=== PATIENT | female | born 1990 | race Caucasian/White ===

== ENCOUNTER 2018-01-09 14:38 | Inpatient (IN) | payer OTHER ==
[~2018-01-09] VITALS: Ht 170.2 cm; Wt 60.0 kg
[2018-01-09 14:42] VITALS: Ht 170.2 cm; Wt 60.0 kg
[2018-01-09 15:23] LABS: BASOPHIL % 0.4 % (0-2); PLATELET COUNT 307 x10^3mcL (130-400)
[2018-01-09 15:26] LABS: RED CELL DISTRIBUTION WIDTH 14.6 % (11.5-14.5)
[2018-01-09 15:32] LABS: CALCIUM 8.6 mg/dL (8.5-10.1); CARBON DIOXIDE 28.8 mmol/L (21-32); CHLORIDE SERUM 103 mmol/L (98-107); CREATININE SERUM 0.6 mg/dL (0.6-1.0); GFR1 > 60 mL/min; GLUCOSE SERUM 93 mg/dL (74-106); POTASSIUM SERUM 3.5 mmol/L (3.5-5.1); SODIUM SERUM 138 mmol/L (136-145)
[2018-01-09 18:17] LABS: MAGNESIUM 1.5 mg/dL (1.8-2.4); PHOSPHOROUS 3.8 mg/dL (2.5-4.9)
[2018-01-09 18:22] LABS: T3 TOTAL 1.53 ng/mL
[2018-01-09 18:43] LABS: FREE T4 1.39 ng/dL (0.76-1.46); FREE THYROXINE INDEX 2.9 ug/dL (1.4-4.5); T4(THYROXINE) 8.5 ug/dL (4.7-13.3)
[2018-01-09] MEDS ORDERED: XANAX2 MG PO (19:07)
[2018-01-09 19:16] LABS: UA SPECIFIC GRAVITY 1.015 (1.005-1.035); microscopic required? YES; urine erythrocyte NEGATIVE (NEGATIVE)
[2018-01-09 19:25] LABS: AMPHETAMINE QUAL UR POSITIVE (See below)
[2018-01-09 19:57] VITALS: BP 143/94
[2018-01-09 20:00] LABS: CALCIUM 8.3 mg/dL (8.5-10.1); CARBON DIOXIDE 26.6 mmol/L (21-32); CHLORIDE SERUM 105 mmol/L (98-107); CREATININE SERUM 0.7 mg/dL (0.6-1.0); GFR1 > 60 mL/min; GLUCOSE SERUM 89 mg/dL (74-106); POTASSIUM SERUM 3.7 mmol/L (3.5-5.1); SODIUM SERUM 141 mmol/L (136-145)
[2018-01-09 20:04] LABS: ALKALINE PHOSPHATASE 128 U/L (46-116); ALT/SGPT 26 U/L (14-59); AST/SGOT 19 U/L (15-37); BILIRUBIN TOTAL 0.39 mg/dL (0.20-1.00); TOTAL PROTEIN, SERUM 7.2 g/dL (6.4-8.2)
[2018-01-09 20:06] LABS: ALBUMIN 2.5 g/dL (3.4-5.0)
[2018-01-10 05:38] VITALS: BP 121/76
[2018-01-10 06:09] LABS: BASOPHIL % 0.4 % (0-2); PLATELET COUNT 313 x10^3mcL (130-400)
[2018-01-10 06:44] LABS: CALCIUM 8.5 mg/dL (8.5-10.1); CARBON DIOXIDE 24.4 mmol/L (21-32); CHLORIDE SERUM 106 mmol/L (98-107); CREATININE SERUM 0.6 mg/dL (0.6-1.0); GFR1 > 60 mL/min; GLUCOSE SERUM 76 mg/dL (74-106); MAGNESIUM 1.6 mg/dL (1.8-2.4); PHOSPHOROUS 3.7 mg/dL (2.5-4.9); POTASSIUM SERUM 3.8 mmol/L (3.5-5.1); SODIUM SERUM 142 mmol/L (136-145)
[2018-01-10 07:55] VITALS: BP 116/78
[2018-01-10 11:48] VITALS: BP 110/76
[2018-01-10 18:11] VITALS: BP 120/81
[2018-01-10 21:10] VITALS: BP 105/63
[2018-01-11 05:12] VITALS: BP 133/84
[2018-01-11 08:02] LABS: CALCIUM 8.6 mg/dL (8.5-10.1); CARBON DIOXIDE 24.2 mmol/L (21-32); CHLORIDE SERUM 105 mmol/L (98-107); CREATININE SERUM 0.5 mg/dL (0.6-1.0); GFR1 > 60 mL/min; GLUCOSE SERUM 149 mg/dL (74-106); POTASSIUM SERUM 3.2 mmol/L (3.5-5.1); SODIUM SERUM 138 mmol/L (136-145)
[2018-01-11 08:07] LABS: BASOPHIL % 0.1 % (0-2); PLATELET COUNT 373 x10^3mcL (130-400)
[2018-01-11 08:13] LABS: RED CELL DISTRIBUTION WIDTH 14.9 % (11.5-14.5)
[2018-01-11 11:57] VITALS: BP 138/86
[2018-01-11 17:04] VITALS: BP 93/42; BP 94/51
[2018-01-11 20:52] VITALS: BP 97/58
[2018-01-12 05:19] VITALS: BP 105/65
[2018-01-12 07:04] LABS: BASOPHIL % 0.3 % (0-2); PLATELET COUNT 359 x10^3mcL (130-400)
[2018-01-12 07:07] LABS: CALCIUM 7.9 mg/dL (8.5-10.1); CHLORIDE SERUM 108 mmol/L (98-107); CREATININE SERUM 0.7 mg/dL (0.6-1.0); GFR1 > 60 mL/min; GLUCOSE SERUM 110 mg/dL (74-106); POTASSIUM SERUM 3.1 mmol/L (3.5-5.1); SODIUM SERUM 143 mmol/L (136-145)
[2018-01-12 07:09] LABS: RED CELL DISTRIBUTION WIDTH 14.6 % (11.5-14.5)
[2018-01-12 09:00] VITALS: BP 105/66
[2018-01-12] MEDS ORDERED: KEFLEX500 M1 PO (13:23)
[2018-01-12] MEDS ORDERED: TOR10 PO (13:24)
[2018-01-12 14:01] VITALS: BP 105/66
== END 2018-01-12 15:24 | disposition home or self-care (01) | DRG 720 ==
LOC: ED 14:38 → MU 17:48
PROVIDERS: Emergency Medicine; Internal Medicine
PROC: 0W9F3ZZ Drainage of Abdominal Wall, Percutaneous Approach (ICD-10-PCS; principal; 2018-01-09)
PROC: 0W9F30Z Drainage of Abdominal Wall with Drainage Device, Percutaneous Approach (ICD-10-PCS; 2018-01-11)
DX: A41.9 Sepsis, unspecified organism (principal); E43 Unspecified severe protein-calorie malnutrition; L02.211 Cutaneous abscess of abdominal wall; E83.42 Hypomagnesemia; D64.9 Anemia, unspecified; F11.10 Opioid abuse, uncomplicated; Z68.20 Body mass index [BMI] 20.0-20.9, adult; L03.311 Cellulitis of abdominal wall; F41.9 Anxiety disorder, unspecified; Z90.89 Acquired absence of other organs; F19.10 Other psychoactive substance abuse, uncomplicated
CPT/HCPCS: 83880; 84439; 90715; C9113; J0295; J0690; J1170; J1720; J1885; J2001; J2543; J3010; J3370; J3480; J3490; J7030; Q0092

== ENCOUNTER 2018-03-26 17:11 | Inpatient (IN) | payer OTHER ==
[~2018-03-26] VITALS: Ht 167.6 cm; Wt 58.1 kg
[~2018-03-26 17:11] MED LIST: KEFLEX500 M1 PO; TOR10 PO; XANAX2 MG PO
[2018-03-26 17:42] VITALS: Ht 167.6 cm; Wt 58.1 kg
[2018-03-26 19:07] LABS: BASOPHIL % 0.3 % (0-2); PLATELET COUNT 303 x10^3mcL (130-400)
[2018-03-26 19:08] LABS: CHLORIDE SERUM 100 mmol/L (98-107); CREATININE SERUM 0.7 mg/dL (0.6-1.0); GFR1 > 60 mL/min; GLUCOSE SERUM 84 mg/dL (74-106); POTASSIUM SERUM 3.5 mmol/L (3.5-5.1); SODIUM SERUM 136 mmol/L (136-145)
[2018-03-26 19:09] LABS: RED CELL DISTRIBUTION WIDTH 15.2 % (11.5-14.5)
[2018-03-26 19:13] LABS: ALBUMIN 3.4 g/dL (3.4-5.0); ALKALINE PHOSPHATASE 124 U/L (46-116); ALT/SGPT 53 U/L (14-59); AST/SGOT 27 U/L (15-37); BILIRUBIN TOTAL 0.19 mg/dL (0.20-1.00)
[2018-03-26 19:14] LABS: TOTAL PROTEIN, SERUM 8.4 g/dL (6.4-8.2)
[2018-03-26 21:13] LABS: AMPHETAMINE QUAL UR POSITIVE (See below)
[2018-03-26 21:22] VITALS: BP 121/78
[2018-03-26 21:48] LABS: CHOLESTEROL/HDL RATIO 2.9
[2018-03-27 05:08] VITALS: BP 107/64
[2018-03-27 07:55] LABS: CALCIUM 8.5 mg/dL (8.5-10.1); CARBON DIOXIDE 25.6 mmol/L (21-32); CHLORIDE SERUM 103 mmol/L (98-107); CREATININE SERUM 0.6 mg/dL (0.6-1.0); GFR1 > 60 mL/min; GLUCOSE SERUM 118 mg/dL (74-106); MAGNESIUM 1.8 mg/dL (1.8-2.4); PHOSPHOROUS 2.6 mg/dL (2.5-4.9); POTASSIUM SERUM 3.9 mmol/L (3.5-5.1); SODIUM SERUM 135 mmol/L (136-145)
[2018-03-27 08:03] LABS: BASOPHIL % 0.2 % (0-2); PLATELET COUNT 284 x10^3mcL (130-400)
[2018-03-27 08:05] LABS: RED CELL DISTRIBUTION WIDTH 15.1 % (11.5-14.5)
[2018-03-27 08:51] VITALS: BP 108/67
[2018-03-27 10:36] LABS: microscopic required? NO
[2018-03-27 11:16] LABS: urine erythrocyte NEGATIVE (NEGATIVE)
[2018-03-27 12:17] VITALS: BP 113/73
[2018-03-27 20:51] VITALS: BP 100/856
[2018-03-28 05:13] VITALS: BP 103/65
[2018-03-28 06:32] LABS: BASOPHIL % 0.3 % (0-2); PLATELET COUNT 292 x10^3mcL (130-400)
[2018-03-28 06:36] LABS: RED CELL DISTRIBUTION WIDTH 14.6 % (11.5-14.5)
[2018-03-28 06:52] LABS: CALCIUM 8.3 mg/dL (8.5-10.1); CARBON DIOXIDE 25.2 mmol/L (21-32); CHLORIDE SERUM 104 mmol/L (98-107); CREATININE SERUM 0.6 mg/dL (0.6-1.0); GFR1 > 60 mL/min; GLUCOSE SERUM 99 mg/dL (74-106); POTASSIUM SERUM 3.3 mmol/L (3.5-5.1); SODIUM SERUM 139 mmol/L (136-145)
[2018-03-28 08:00] VITALS: BP 98/61
[2018-03-28] MEDS ORDERED: DOXYCYCLINE HY100 M2 PO (12:33)
[2018-03-28 13:07] VITALS: BP 98/61
[2018-03-28] MEDS ORDERED: NORCO1 TA1 PO (15:34)
== END 2018-03-28 16:47 | disposition home health service (06) | DRG 364 ==
LOC: ED 17:11 → MU 20:13
PROVIDERS: Emergency Medicine; General Practice; Surgery
PROC: 0J9N0ZZ Drainage of Right Lower Leg Subcutaneous Tissue and Fascia, Open Approach (ICD-10-PCS; 2018-03-27)
PROC: 0J980ZZ Drainage of Abdomen Subcutaneous Tissue and Fascia, Open Approach (ICD-10-PCS; 2018-03-27)
PROC: 0J980ZZ Drainage of Abdomen Subcutaneous Tissue and Fascia, Open Approach (ICD-10-PCS; principal; 2018-03-27 10:00)
DX: L03.311 Cellulitis of abdominal wall (principal); E43 Unspecified severe protein-calorie malnutrition; L02.211 Cutaneous abscess of abdominal wall; F11.20 Opioid dependence, uncomplicated; L02.216 Cutaneous abscess of umbilicus; L02.415 Cutaneous abscess of right lower limb; E87.6 Hypokalemia; Z68.20 Body mass index [BMI] 20.0-20.9, adult; Z91.19 Patient's noncompliance with other medical treatment and regimen; F19.10 Other psychoactive substance abuse, uncomplicated; F17.200 Nicotine dependence, unspecified, uncomplicated; L03.115 Cellulitis of right lower limb
CPT/HCPCS: J0690; J0696; J1170; J2001; J2250; J2405; J2543; J3010; J3370; J7030; J7040; Q0092

== ENCOUNTER 2018-03-30 16:50 | Emergency (ER) | payer OTHER ==
[~2018-03-30] VITALS: Ht 165.1 cm; Wt 54.4 kg
[~2018-03-30 16:50] MED LIST changes: +DOXYCYCLINE HY100 M2 PO; +NORCO1 TA1 PO
[2018-03-30 18:36] VITALS: BP 144/78
== END 2018-03-30 18:36 | disposition home or self-care (01) ==
LOC: ED 16:50
DX: L02.211 Cutaneous abscess of abdominal wall (principal); L02.415 Cutaneous abscess of right lower limb; R03.0 Elevated blood-pressure reading, without diagnosis of hypertension

== ENCOUNTER 2018-04-06 07:36 | Emergency (ER) | payer OTHER ==
[~2018-04-06] VITALS: Ht 167.6 cm; Wt 57.2 kg
[2018-04-06 07:40] VITALS: BP 136/95; Ht 167.6 cm; Wt 57.2 kg
== END 2018-04-06 08:20 | disposition home or self-care (01) ==
LOC: ED 07:36
DX: L02.211 Cutaneous abscess of abdominal wall (principal)

== ENCOUNTER 2018-09-27 16:04 | Inpatient (IN) | payer OTHER ==
[~2018-09-27] VITALS: Ht 167.6 cm; Wt 78.5 kg
--- NOTE | 2018-09-27 16:24 | NUR ---
PATIENT WAS BROUGHT IN BY FOR ALOC, WAS ABLE TO TAKE A FEW STEPS FROM WHEELCHAIR TO GURNEY. PATIENT WAS ABLE TO COMMUNICATE BUT SLOWLY. PER PATIENT, SHE HAD AN 2 DAYS AGO. STS THAT SHE DOES TAKE HEROIN. PATIENT HAS BEEN ABLE TO ANSWER ALL QUESTIONS WITH [facility]. PATIENT IS DIAPHORETIC AND SKIN IS COOL AND CLAMMY. DR. BUCK PERFORMED MSE.
--- NOTE | 2018-09-27 16:25 | NUR ---
NEEDLE FOUND ON PATIENT'S RIGHT SIDE NEAR HER BRA. PATIENT DID STATE SHE HAS HISTORY OF HEROIN USE, STS LAST USE 2 DAYS AGO.
--- NOTE | 2018-09-27 16:50 | NUR ---
PATIENT SENT TO CT
[2018-09-27 17:04] LABS: PLATELET COUNT 38 x10^3mcL (130-400); RED CELL DISTRIBUTION WIDTH 16.2 % (11.5-14.5)
[2018-09-27 17:17] LABS: CALCIUM 8.4 mg/dL (8.5-10.1); CARBON DIOXIDE 18.3 mmol/L (21-32); CHLORIDE SERUM 107 mmol/L (98-107); CREATININE SERUM 3.8 mg/dL (0.6-1.0); GFR1 15 mL/min; GLUCOSE SERUM 69 mg/dL (74-106); POTASSIUM SERUM 3.9 mmol/L (3.5-5.1); SODIUM SERUM 147 mmol/L (136-145)
[2018-09-27 17:31] LABS: ALKALINE PHOSPHATASE 158 U/L (46-116); ALT/SGPT 264 U/L (14-59); AST/SGOT 653 U/L (15-37); BILIRUBIN TOTAL 11.62 mg/dL (0.20-1.00); MAGNESIUM 1.3 mg/dL (1.8-2.4); TOTAL PROTEIN, SERUM 6.3 g/dL (6.4-8.2)
[2018-09-27 17:33] LABS: ALBUMIN 2.5 g/dL (3.4-5.0)
[2018-09-27 17:39] LABS: BAND NEUTROPHIL 19 % (0-10); METAMYELOCTE 11 % (0-2); MONOCYTE 2 % (0-7); MYELOCYTE 3 % (0-2); SEGMENTED NEUTROPHILS 61 % (37-75)
[2018-09-27 17:41] LABS: PLATELET MORPHOLOGY PLATELETS DECREASED; acanthocyte (spur cell) 1+; rbc morphology (normal/abnorm) ABNORMAL (NORMAL)
--- NOTE | 2018-09-27 18:07 | NUR ---
XRAY AT BEDSIDE
--- NOTE | 2018-09-27 18:09 | NUR ---
PER MARLEEN FREY TO GIVE NACL BOLUS.
[2018-09-27 18:13] LABS: UA SPECIFIC GRAVITY 1.015 (1.005-1.035); microscopic required? YES; urine erythrocyte 2+ (NEGATIVE)
--- NOTE | 2018-09-27 18:15 | NUR ---
NOTIFIED DR. BUCK OF BP OF 91/45 WITH MAP OF 60. PER DR. BUCK, CONTINUE WITH BOLUS FLUIDS
--- NOTE | 2018-09-27 18:32 | NUR ---
WENT TO LAB TO REQUEST ETA FOR FRESH FROZEN PLASMA. PER LAB, SPECIMEN HAS NOT BEEN OBTAINED. PLEASE CHECK IN 45-60 MINUTES
[2018-09-27 18:45] LABS: AMPHETAMINE QUAL UR POSITIVE (See below)
--- NOTE | 2018-09-27 18:47 | NUR ---
PT RESTING AT BEDSIDE IN NAD.
--- NOTE | 2018-09-27 19:09 | NUR ---
REPORT OFF TO CAITLYN JEFFERSON
--- NOTE | 2018-09-27 20:20 | NUR ---
TRANSFUSION OF FFP INITIATED.
--- NOTE | 2018-09-27 20:37 | NUR ---
PT VITAL SIGNS STABLE. RESPIRATIONS EVEN AND UNLABORED. FFP RATE INCREASED TO BE GIVEN OVER ONE HOUR PER ORDER. NO ACUTE DISTRESS NOTED.
--- NOTE | 2018-09-27 20:46 | NUR ---
REPORT GIVEN TO ANTOINE IN ICU FOR CONTINUATION OF CARE.
--- NOTE | 2018-09-27 20:56 | NUR ---
RECEIVED REPORT FROM ANGEL IN ER. RECEIVED PT AND CONNECTED TO CARDIAC MONITORS. PT IS ALERT AND ORIENTED TO PERSON AND PLACE. PUPILS 3 MM AND BRISK BILATERALLY. PT IS BREATHING E/U ON RA. LUNG SOUNDS DIMINISHED TO BILATERAL UPPER AND LOWER LOBES. S1 S2 HEART SOUNDS AUSCULTATED. ABD IS FIRM AND ROUNDED WITH HYPOACTIVE BOWEL SOUNDS X4Q. WHITE DRAINING VIA GRAVITY. URINE IS YELLOW WITH FAIR OUTPUT. SKIN IS COOL, CLAMMY, AND PALE. PT HAS IV TO RIGHT JUGULAR PATENT, DRESSING CDI. CAP REFILL <3 SECONDS X4. NS INFUSING AT 250 ML/HR, D10 INFUSING AT 100 ML/HR, AND FFP INFUSING AT 233.9 ML/HR. MODERATE PULSES TO BUE, WEAK TO BLE. PT HAS VARIOUS BRUISING THROUGHOUT THE BODY, PARTICULARLY TO LOWER ABD. TRACE EDEMA NOTED TO BUE/BLE. WILL CONTINUE TO MONITOR.
[2018-09-27 20:58] LABS: PHOSPHOROUS 5.9 mg/dL (2.5-4.9)
[2018-09-27 20:59] LABS: CHOLESTEROL/HDL RATIO 5.3
[2018-09-27 21:07] LABS: FREE T4 1.37 ng/dL (0.76-1.46); FREE THYROXINE INDEX 2.7 ug/dL (1.4-4.5); T3 TOTAL 0.87 ng/mL; T4(THYROXINE) 9.3 ug/dL (4.7-13.3)
--- NOTE | 2018-09-27 21:55 | NUR ---
DR. HOLLAND AT BEDSIDE FOR INITIAL ASSESSMENT. PER DR. HOLLAND, ORDER 1 L NS BOLUS, AND DIC PANEL. WILL FOLLOW THROUGH WITH ORDER.
--- NOTE | 2018-09-27 22:49 | NUR ---
PT'S BLOOD SUGAR 27, BEGAN INFUSION OF D10 AT 250 ML/HR. CALLED DR. MCCULLOUGH TO PLACE ORDER.
--- NOTE | 2018-09-27 23:00 | NUR ---
FIRST BAG OF FROZEN PLASMA COMPLETED. FINAL VITAL SIGNS INCLUDE TEMP. 98.0, PULSE: 92, BP: 99/58, RR: 16, O2: 100%. NO ADVERSE EFFECTS NOTED.
--- NOTE | 2018-09-27 23:13 | NUR ---
PT'S BLOOD SUGAR NOW AT 71, WILL CHECK AGAIN IN ABOUT 15 MINUTES.
--- NOTE | 2018-09-28 | NUR ---
SECOND BAG OF FFP STARTED. VITAL SIGNS INCLUDE TEMP: 97.6, PULSE: 100, BP: 99/70, RR: 22, O2: 100%. WILL CONTINUE TO MONITOR.
--- NOTE | 2018-09-28 | NUR ---
PT UPDATED BLOOD SUGAR 103. WILL CONTINUE TO MONITOR PATIENT.
--- NOTE | 2018-09-28 00:15 | NUR ---
15 MINUTE VITALS FOR FFP INCLUDE TEMP 98.1, PULSE: 94, BP: 110/62, RR: 13, O2: 100%. WILL INCREASE RATE, AND CONTINUE TO MONITOR PT.
[2018-09-28 00:42] VITALS: BP 91/52
--- NOTE | 2018-09-28 01:34 | NUR ---
SECOND BAG OF FFP COMPLETED. FINAL VITAL SIGNS INCLUDE TEMP: 98.0, PULSE: 94, BP: 114/74, RR: 14, O2: 100%. NO ADVERSE EVENTS NOTED. WILL CONTINUE TO MONITOR.
--- NOTE | 2018-09-28 04:15 | NUR ---
PT HAD A BLOOD SUGAR OF 12. PROVIDED PATIENT WITH ORANGE JUICE WITH SUGAR PACKETS, BUT PT DID NOT TOLERATE. PAGED DR. MCCULLOUGH FOR ORDERS. WILL FOLLOW THROUGH.
[2018-09-28 06:16] LABS: PLATELET COUNT 18 x10^3mcL (130-400); RED CELL DISTRIBUTION WIDTH 16.8 % (11.5-14.5)
--- NOTE | 2018-09-28 06:16 | NUR ---
PLT 18, made aware at this time,awaiting any orders. Will continue to monitor.
--- NOTE | 2018-09-28 06:28 | NUR ---
Pt noted with critical lab Troponin trending down. Troponin 0.116, relayed to Dr Conklin with no new orders. Will continue to monitor.
--- NOTE | 2018-09-28 06:53 | NUR ---
AFTER D10 WAS GIVEN, BLOOD SUGAR WAS 41. DR. KNOX MADE AWARE.
--- NOTE | 2018-09-28 07:26 | NUR ---
PROVIDED PATIENT WITH ORANGE JUICE, WITH ADDED SUGAR PACKETS TO RAISE BLOOD SUGAR. D10 ALSO INFUSING AT 250 ML/HR.
--- NOTE | 2018-09-28 07:30 | NUR ---
RECEIVED PT FROM ARELI RN. PT AA/OX3, EASILY AROUSABLE TO VERBAL STIMULI, BLOOD SUGAR SPOT CHECKED, 36, RECHECKED 34. GIVEN ORANGE JUICE WITH SUGAR. DR. KNOX NOTIFIED IMMEDIATELY. AWAITING NEW ORDERS. PT COLD/CLAMMY. NO N/V. WILL MONITOR CLOSELY
[2018-09-28 07:41] LABS: CALCIUM 6.2 mg/dL (8.5-10.1); CARBON DIOXIDE 17.7 mmol/L (21-32); POTASSIUM SERUM 3.9 mmol/L (3.5-5.1)
[2018-09-28 07:44] LABS: ALBUMIN 1.8 g/dL (3.4-5.0); TOTAL PROTEIN, SERUM 4.7 g/dL (6.4-8.2)
[2018-09-28 07:46] LABS: BILIRUBIN TOTAL 14.03 mg/dL (0.20-1.00); CREATININE SERUM 4.7 mg/dL (0.6-1.0)
--- NOTE | 2018-09-28 07:48 | NUR ---
IV FLUIDS DEXTROSE 10% RUNNING PER DR. KNOX ORDER. BLOOD SUGAR CHECKED, 86. RESTING IN BED WITH BOTH EYES CLOSED. VS STABLE. WILL CONTINUE TO MONITOR.
--- NOTE | 2018-09-28 07:54 | NUR ---
BUN 56, CREA 4.7, TOTAL BILI 14.03, DR. MCCULLOUGH AND DR. KNOX AWARE. NO FURTHER ORDERS AT THIS TIME. WILL MONITOR.
[2018-09-28 08:10] VITALS: BP 102/75
[2018-09-28 09:34] LABS: BAND NEUTROPHIL 20 % (0-10); BASOPHIL 0 % (0-2); METAMYELOCTE 10 % (0-2); MONOCYTE 3 % (0-7); MYELOCYTE 3 % (0-2); PLATELET MORPHOLOGY PLATELETS DECREASED; SEGMENTED NEUTROPHILS 58 % (37-75); rbc morphology (normal/abnorm) ABNORMAL (NORMAL); schistocyte (helmet cell) 1+
[2018-09-28 09:35] LABS: acanthocyte (spur cell) 1+; burr cell (echinocyte) 1+
--- NOTE | 2018-09-28 11:20 | NUR ---
DR. KNOX MADE AWARE CAITLYN BUNCH GOT THREE DIFFERENT BEDSIDE BLOOD SUGARS INCLUDING 18, 67 AND 73. NO INTERVENTION DONE BETWEEN EACH CHECK. DR. KNOX WILL VERIFY BLOOD GLUCOSE BY ORDERING A BMP. DR. KNOX MADE AWARE PATIENT ONLY HAS ONE IV ACCESS AND UNABLE TO OBTAIN ANOTHER IV DUE TO DIFFICULT STICK. PLATELET AND BUBBLE STUDY ON HOLD FOR NOW DUE TO LIMITED IV ACCESS, DR. KNOX MADE AWARE.
[2018-09-28 12:03] VITALS: BP 114/73
[2018-09-28 13:37] LABS: CALCIUM 6.1 mg/dL (8.5-10.1); CARBON DIOXIDE 14.2 mmol/L (21-32); POTASSIUM SERUM 5.3 mmol/L (3.5-5.1)
[2018-09-28 13:44] LABS: CREATININE SERUM 5.1 mg/dL (0.6-1.0)
--- NOTE | 2018-09-28 14:00 | NUR ---
notified of blood cultures, gram negative rods and gram positive cocci in clusters, per dr, will add another antibiotic for coverage of blood culture results. Primary RN Marie made aware.
--- NOTE | 2018-09-28 14:10 | NUR ---
BLOOD CULTURE: Gram Positive Cocci in Cluster, Gram Negative Bacilli, DR. KNOX AWARE.
[2018-09-28 16:10] VITALS: BP 103/63
--- NOTE | 2018-09-28 18:37 | NUR ---
BLOOD SUGAR SPOT CHECKED 42, RECHECKED IN ALTERNATE HAND, 47, GIVEN APPLE JUICE WITH SUGAR. DR. KNOX AND DR. MCCULLOUGH AWARE. PER DR. MCCULLOUGH CONTINUE CURRENT FLUIDS. PT AA/OX4, FOLLOWS COMPLEX COMMANDS, RESPONDS TO VERBAL STIMULI, FACE SYMMETRICAL, SPEECH CLEAR. NO S/S OF ACUTE DISTRESS. VS STABLE. IV WNL TO RIJ, SHEY CATH TO LIJ WNL, AWAITING XRAY FOR CONFIRMATION OF PLACEMENT. WHITE INTACT, OUTPUT 100CC FOR DAY, OLIGURIC. NO COMPLAINT OF PAIN. NO SOB ON 2LNC. BED IN LOW POSITION. CALL LIGHT WITHIN REACH. WILL ENDORSE TO ONCOMING SHIFT.
--- NOTE | 2018-09-28 19:35 | NUR ---
REPORT GIVEN TO GRACE RN TO ASSUME CARE. PT DROWSY BUT EASILY AROUSABLE. PT IS A/0 X4, SPEECH CLEAR AND APPROPRIATE. ABLE TO FOLLOW COMMANDS. PERRLA NOTED. SCLERAL EDEMA NOTED BIANKA. EENT FREE OF DISCHARGE. RESPS E/U ON O2 2LPM VIA NC. CHEST RISE EQUAL AND SYMMETRICAL. LUNG SOUNDS CTA. MANAGER STRATEGY & ACCOUNT IN PLACE, BP 118/67 MAP 83, HR 92. CHEST WALL STABLE. DENIES ANY CP, SYNCOPE, OR DIZZINESS. PULSES PALPABLE X4 BUT WEAK. GENERALIZED NON-PITTING EDEMA NOTED. CAP REFILL < 3 SECS. D10 INFUSING @ 50ML/HR. D5W WITH HCO3 INFUSING @ 100ML/HR. GEN WEAKNESS. TURNED AND REPOSITIONED Q2H FOR PRESSURE RELIEF. REGULAR DIET BUT WITH POOR INTAKE REPORTED BY AM NURSE. ABD DISTENDED AND SOFT. BOWEL SOUNDS HYPOACTIVE. DENIES ANY N/V/D AT THIS TIME. F/C INTACT AND DRAINING VIA GRAVITY. NO VAGINAL BLEEDING OR DISCHARGE NOTED. LIJ SHEY CATH INTACT, PORTS PATENT, DSG CDI. R EJ IV INTACT AND PATENT, INFUSING WELL. SKIN COLOR JAUNDICED WITH SCATTERED ECCHYMOSIS TO BUE, BLE, AND ABD. TRACK DEJESUS NOTED BUE. ALL NEEDS MET AT THIS TIME. CALL LIGHT WITHIN REACH. ROOM NEAR NURSING STATION FOR CLOSE MONITORING. WILL CONTINUE TO MONITOR.
--- NOTE | 2018-09-28 19:35 | NUR ---
REC'D REPORT FROM GRACE RN TO ASSUME CARE. PT DROWSY BUT EASILY AROUSABLE. PT IS A/0 X4, SPEECH CLEAR AND APPROPRIATE. ABLE TO FOLLOW COMMANDS. PERRLA NOTED. SCLERAL EDEMA NOTED BIANKA. EENT FREE OF DISCHARGE. RESPS E/U ON O2 2LPM VIA NC. CHEST RISE EQUAL AND SYMMETRICAL. LUNG SOUNDS CTA. VP PATIENT IN PLACE, BP 118/67 MAP 83, HR 92. CHEST WALL STABLE. DENIES ANY CP, SYNCOPE, OR DIZZINESS. PULSES PALPABLE X4 BUT WEAK. GENERALIZED NON-PITTING EDEMA NOTED. CAP REFILL < 3 SECS. D10 INFUSING @ 50ML/HR. D5W WITH HCO3 INFUSING @ 100ML/HR. GEN WEAKNESS. TURNED AND REPOSITIONED Q2H FOR PRESSURE RELIEF. REGULAR DIET BUT WITH POOR INTAKE REPORTED BY AM NURSE. ABD DISTENDED AND SOFT. BOWEL SOUNDS HYPOACTIVE. DENIES ANY N/V/D AT THIS TIME. F/C INTACT AND DRAINING VIA GRAVITY. NO VAGINAL BLEEDING OR DISCHARGE NOTED. LIJ SHEY CATH INTACT, PORTS PATENT, DSG CDI. R EJ IV INTACT AND PATENT, INFUSING WELL. SKIN COLOR JAUNDICED WITH SCATTERED ECCHYMOSIS TO BUE, BLE, AND ABD. TRACK DEJESUS NOTED BUE. ALL NEEDS MET AT THIS TIME. CALL LIGHT WITHIN REACH. ROOM NEAR NURSING STATION FOR CLOSE MONITORING. WILL CONTINUE TO MONITOR.
[2018-09-28 19:40] VITALS: BP 118/67
--- NOTE | 2018-09-28 19:45 | NUR ---
PTS BLOOD SUGAR 10, APPLE JUICE AND WATER WITH SUGAR PACKETS PROVIDED. DR SADIA OROZCO AWARE, ORDER GIVEN FOR IVF D10 @ 100ML/HR.
--- NOTE | 2018-09-28 20:43 | NUR ---
BLOOD SUGAR RECHECKED, 51. PT DROWSY BUT EASILY AROUSABLE. ABLE TO FOLLOW COMMANDS.
--- NOTE | 2018-09-28 21:30 | NUR ---
DR HOLLAND AT BEDSIDE, UPDATED ON STATUS. NO NEW ORDERS GIVEN.
--- NOTE | 2018-09-29 00:31 | NUR ---
HD COMPLETE, 2L OUT REPORTED BY JACKELYN BRADY.
[2018-09-29 00:38] VITALS: BP 116/60
--- NOTE | 2018-09-29 01:15 | NUR ---
DR PINK AT BEDSIDE, UPDATED ON STATUS, ALL QUESTIONS AND CONCERNS ADDRESSED. DR PINK STATES TO CONTINUE SAME ATBS, NO NEW ORDERS GIVEN.
[2018-09-29 03:12] VITALS: BP 113/57
--- NOTE | 2018-09-29 05:28 | NUR ---
TOTAL BED BATH PROVIDED WITH CHG WIPES. SMALL AMT OF DARK BROWN THICK DISCHARGE NOTED TO [place]. F/C CARE PROVIDED, LINENS CHANGED. DR BORJA MADE AWARE.
[2018-09-29 06:01] LABS: CALCIUM 6.8 mg/dL (8.5-10.1); CREATININE SERUM 3.6 mg/dL (0.6-1.0); POTASSIUM SERUM 3.2 mmol/L (3.5-5.1)
[2018-09-29 06:02] LABS: ALBUMIN 1.4 g/dL (3.4-5.0); TOTAL PROTEIN, SERUM 3.7 g/dL (6.4-8.2)
[2018-09-29 06:03] LABS: BILIRUBIN TOTAL 19.64 mg/dL (0.20-1.00)
--- NOTE | 2018-09-29 06:05 | NUR ---
REPORTED ALL ABNORMAL LABS TO DR BORJA, AWAITING FOR FURTHER ORDERS.
[2018-09-29 06:22] LABS: RED CELL DISTRIBUTION WIDTH 16.7 % (11.5-14.5)
--- NOTE | 2018-09-29 06:29 | NUR ---
REPORTED CRITICAL LAB VALUE PLT 8000, HCT [address] DR BORJA STS WILL SPEAK TO DR DUNLAP FOR FURTHER ORDERS.
[2018-09-29 06:32] LABS: BAND NEUTROPHIL 6 % (0-10); MONOCYTE 2 % (0-7); SEGMENTED NEUTROPHILS 82 % (37-75)
[2018-09-29 06:37] LABS: PLATELET MORPHOLOGY PLATELETS DECREASED; acanthocyte (spur cell) 1+; rbc morphology (normal/abnorm) ABNORMAL (NORMAL); schistocyte (helmet cell) 1+
[2018-09-29 07:05] LABS: PLATELET COUNT 8 x10^3mcL (130-400)
--- NOTE | 2018-09-29 07:07 | NUR ---
DR WRIGHT AT BEDSIDE, UPDATED ON STATUS WITH ALL ABNORMAL LABS, DR WRIGHT STATES PT WILL NEED PLTS BUT CLARIFY WITH ONCOLOGIST FIRST. DO NOT GIVE ANY PAIN OR SEDATION MEDICATIONS. DR BORJA MADE AWARE. DR RAMIREZ (ONCOLOGIST) PAGED AT THIS TIME.
--- NOTE | 2018-09-29 07:24 | NUR ---
REPORT GIVEN TO VAHE BRADY FOR CONTINUITY OF CARE
--- NOTE | 2018-09-29 07:35 | NUR ---
PT PLACED ON ISOGEL MATTRESS AND BILAT Z-FLEX BOOTS APPLIED. PRIMARY RN AWARE.
[2018-09-29 08:00] VITALS: BP 117/70
--- NOTE | 2018-09-29 08:32 | NUR ---
SPOKE WITH DR. BORJA AND INFORMED HER PER DR. RAMIREZ PLEASE ORDER 2 UNITS OF PLATLETS. PRIMARY RN AWARE.
--- NOTE | 2018-09-29 09:32 | NUR ---
PT TURNED AND REPOSITIONED WITH ALL PRESSURE POINTS OFFLOADED. PT'S LEFT HAND NOTED TO BE SWOLLEN WITH RING TO RING FINER. PT EDUCATED ON NEED TO ATTEMPT TO REMOVE RING AND I INFOMRED PT IN THE CASE WE AREN'T ABLE TO REMOVE IT WE MAY NEED TO CUT IT. PT STATED "NO". LEFT HAND ELEVATED AT THIS TIME IN ATTEMPT TO REDUCE SOME OF THE SWELLING TO FINGER. WILL REASSESS. PRIMARY RN AWARE.
--- NOTE | 2018-09-29 10:49 | NUR ---
LEFT HAND REASSESSED FOR REDUCE SWELLING TO RING FINGER. ATTEMPTED TO REMOVE RING AT THIS TIME WITH NO SUCCESS. PT'S SIGNIFICANT OTHER AT BEDSIDE AND ENCOURAGED PT TO CUT RING OFF IF NEED BE. ER CONTACTED FOR ASSISSTANCE IN CUTING RING. AWAITING ARRIVAL OF ERT FOR ASSISTANCE.
--- NOTE | 2018-09-29 11:33 | NUR ---
Initial Nutrition Assessment: [facility] ICU-9 Dx: Severe Sepsis PMHx: IV drug use PSHx: Recent Labs: (09/29) K:3.2L, BH, BUN:38H, Cr:3.6H, Ca:6.8L, T bili:19.64H, AST:194H, ALT:107H, MgL1.1L, WBC:12.7H, H/H;7.2/20L (09/28) Troponin:0.135/0.116 Meds: Colace, D10%, Flagyl, KCL, Protonix, Rocephin, Vancomycin, Zofran, Zosyn Diet: Regular PO Intake: 0% on 09/28 Ht: 66in, 5'6" Wt:140#, 63.5kg BMI: 22.5kg/m2 (normal weight) Bed scale: 71kg noted with equipment and isogel mattress IBW:135#, 61kg %IBW: 104% UBW: unable to obtain Age: 28 y/o female Food Allergies: NKFA Skin:jaundiced, scattered ecchumosis to BUE, BLE and abdomen. + track brush Juan: 13 Edema: generalized non-pitting edema GI: abd disteded, hypoactive bowel sounds, Last BM: Per H&P, pt was admitted with ALOC. Pt had a recent on Monday and has been feeling unwell. Per progress note 09/29, pt was found to have DIC and acute renal failure. Current vitals are stable. Infectious disease recommends continue combination of antibiotics. Cardaic echo was concerning for vegetation. Patient has history of IV drug use. Bubble study done shows vegetation. Pending official read.+LIJ olayinka catheter, completed HD with 2L o/p. During visit, pt was seen with RN, family and doctor at bedside. Spoke to rim fire charger operator, who reports pt with a poor appetite. Pt is drowsy but arousable. Pt is able to chew and swallow without difficulty. Recommended ONS and RN agreeable. Recommended to offer ONS and give medication with ONS. Problem with: N/V/D/C: No Problems with: Chewing: Swallowing: No Current appetite: Poor Recent wt change:unable to assess %wt change:N/A Vitamin/Supplement use: none per H&P Special diet at home: regular per admission assesment Physical activity: unknown Nutrition education given: no due to pt drowsy Food-drug interactions? Vancomycin: GI disorder Education given?no Estimated Nutritional Needs Based on actual body weight 64kg Energy: 1920-2240kcal/d (30-35kcal/kg for sepsis and HD) Protein: 77-90g/d (1.2-1.4g/kg for sepsis and HD) Fluid: per doctor Nutrition Diagnosis 1. Inadequate protein/energy intake related to lethargy as evidenced by PO intake 0% x 3 meals. 2. Altered nutrition related labs related to JOYCE as evidenced by elevated BUN:38 and Cr:3.6. Intervention 1. Recommend adding ONS Nepro TID (provides 1275kcal and 57g protein) due to poor PO intake. Monitor/Evaluate Goal: PO intake at least 75% of estimated needs Monitor: PO intake, Labs, GI function F/U in 2-3 days as high risk:10/01-
--- NOTE | 2018-09-29 11:35 | NUR ---
1. Recommend adding ONS Nepro TID (provides 1275kcal and 57g protein) due to poor PO intake.
--- NOTE | 2018-09-29 11:38 | NUR ---
RING TO LEFT HAND CUT SUCCESSFULLY BY FELA PERAZA AND GIVEN TO PT'S SIGNIFICANT OTHER.
[2018-09-29 12:00] VITALS: BP 109/54
--- NOTE | 2018-09-29 13:10 | NUR ---
FAMILY KUSHAL CAME BEDESIDE. PT'S SITUATION WAS UPDATED. PT CO PAIN. WAS NOTIFIED. TORADOL WAS ORDERED AND GIVEN. PLT WAS ORDERED AND GIVEN. FIRST UNIT OF PLT WAS DONE SMOOTHLY. SECOND STARTED RIGHT NOW. PT TOLERATED WELL.
[2018-09-29 16:00] VITALS: BP 124/59
[2018-09-29 21:00] VITALS: BP 112/78
[2018-09-30] VITALS (13 sets, daily range): BP systolic 110–143; BP diastolic 60–82
[2018-09-30 06:56] LABS: BILIRUBIN DIRECT 28.55 mg/dL (0.0-0.2); CALCIUM 6.6 mg/dL (8.5-10.1); MAGNESIUM 1.4 mg/dL (1.8-2.4); PHOSPHOROUS 2.4 mg/dL (2.5-4.9); POTASSIUM SERUM 3.8 mmol/L (3.5-5.1)
[2018-09-30 07:05] LABS: ALBUMIN 1.4 g/dL (3.4-5.0); TOTAL PROTEIN, SERUM 3.7 g/dL (6.4-8.2)
[2018-09-30 07:06] LABS: BILIRUBIN TOTAL 32.6 mg/dL (0.20-1.00)
[2018-09-30 07:49] LABS: PLATELET COUNT 12 x10^3mcL (130-400)
--- NOTE | 2018-09-30 07:55 | NUR ---
RECEIVED PT RESTING IN BED ON R SIDE, DROWSY BUT AROUSABLE, COMPLAINING OF GENERALIZED PAIN, A+OX4, SCLERAL EDEMA, 2L NC, LUNG SOUNDS DIMINISHED, PULSES WEAK AND EQUAL BIANKA, ANASARCA, NSR, JAUNDICE SKIN , SCATTERED ECCHYMOSIS, TRACK DEJESUS TO BUE, POOR APPETITE, BOWEL SOUNDS ACTIVE, REJ SITE WNL, RIJ SITE WNL, D10 @ 40 ML/HR, D5W WITH HCO3 @ 100 ML/HR, WHITE CATH INTACT AND DRAINING YELLOW URINE TO GRAVITY, GENERALIZED WEAKNESS, ABLE TO TURN NEEDED, CALL LIGHT WITHIN REACH.
--- NOTE | 2018-09-30 08:00 | NUR ---
DR WRIGHT NOTIFIED OF HGB 6.5, HCT 17, PLT 12, D DIMER [id number].
--- NOTE | 2018-09-30 08:03 | NUR ---
PER DR WRIGHT, D10 CHANGED TO 40 ML/HR.
--- NOTE | 2018-09-30 08:04 | NUR ---
DR. WRIGHT IN UNIT AND PROVIDED WITH UPDATES. NEW ORDERS RECIEVED TO LOWER D10 TO 40 ML/HR. PRIMARY RN AWARE. DR. WRIGHT ALSO AWARE OF H/H RESULTS WITH NO FURTHER ORDERS AT THIS TIME. WILL NOTIFY COVERING RESIDENT.
--- NOTE | 2018-09-30 09:50 | NUR ---
PT REPOSITIONED TO SUPINE, HEEL PROTECTORS BLE, PILLOWS UNDER BOTH ARMS, PT REFUSING TO EAT, PT ENCOURAGED TO EAT, PT REQUESTING SPRITE, PT GIVEN DIET SPRITE AND ABLE TO DRINK HALF A SMALL CAN WITH ASSISTANCE, NO RESPRIATORY DISTRESS NOTED, CALL LIGHT WITHIN REACH.
--- NOTE | 2018-09-30 10:20 | NUR ---
PT HAD SOFT BROWN BM VIA BED MAHONEY, PT CLEANED, LINENS CHANGED, NO RESPRIATORY DISTRESS NOTED, CALL LIGHT WITHIN REACH.
--- NOTE | 2018-09-30 11:39 | NUR ---
DR CARMONA AT BEDSIDE TO ASSESS PT. PER DR BISWAS PT TO RECEIVE DIALYSIS TODAY. WILL ADMINISTER PRBC DURING DIALYSIS. PER DR HUONG ROSS TO GIVE PT MORPHINE IVP. NO RESPRIATORY DISTRESS NOTED, CALL LIGHT WITHIN REACH.
[2018-09-30 11:42] LABS: BAND NEUTROPHIL 15 % (0-10); MONOCYTE 3 % (0-7)
[2018-09-30 11:43] LABS: SEGMENTED NEUTROPHILS 77 % (37-75); rbc morphology (normal/abnorm) ABNORMAL (NORMAL)
[2018-09-30 11:44] LABS: PLATELET MORPHOLOGY PLATELETS DECREASED; acanthocyte (spur cell) 1+; schistocyte (helmet cell) 1+
--- NOTE | 2018-09-30 12:32 | NUR ---
PLATELET TRANSFUSION INITIATED, WITNESSED BY CHARGE NURSE GREG BRADY. VS STABLE PRIOR TO TRANSFUSION, NO RESPRIATORY DISTRESS NOTED. WILL REMAIN AT BEDSIDE FOR 15 MINS TO OBSERVE FOR ADVERSE REACTIONS. CALL LIGHT IN REACH.
--- NOTE | 2018-09-30 12:39 | NUR ---
DR LOPEZ AT BEDSIDE TO ASSESS PT.
--- NOTE | 2018-09-30 12:47 | NUR ---
AFTER 15 MINS, NO ADVERSE REACTIONS AT THIS TIME, WILL CONT PLATELET TRANSFUSION. VS STABLE, NO RESPIRATORY DISTRESS NOTED, CALL LIGHT WITHIN REACH.
--- NOTE | 2018-09-30 12:47 | NUR ---
PER DR ERNIE FRYE ROCEPHIN AND ADD TOBRAMYCIN 120 MG ONCE.
--- NOTE | 2018-09-30 13:23 | NUR ---
PER DR LOPEZ AND DR BORJA, DO NOT GIVE TYLENOL, BENADRYL, OR LASIX FOR BLOOD TRANSFUSIONS.
--- NOTE | 2018-09-30 13:37 | NUR ---
TECH AT BEDSIDE FOR US ABD. PLT INFUSING WITHOUT INCIDENT, NO RESPRIATORY DISTRESS NOTED, CALL LIGHT WITHIN REACH.
--- NOTE | 2018-09-30 14:14 | NUR ---
PLATELET TRANSFUSION COMPLETE, VS STABLE, NO RESPRIATORY DISTRESS NOTED, NO ADVERSE REACTION AT THIS TIME, CALL LIGHT WITHIN REACH. SIGNIFICANT OTHER LAMAR AT BEDSIDE.
--- NOTE | 2018-09-30 14:59 | NUR ---
PLT TRANSFUSION INITITATED, VS STABLE, NO RESPRIATORY DISTRESS NOTED. WILL REMAIN AT BEDSIDE FOR 15 MINS TO OBSERVE FOR ADVERSE REACTIONS.
--- NOTE | 2018-09-30 15:15 | NUR ---
AFTER 15 MINS, NO ADVERSE REACTIONS AT THIS TIME, WILL CONT TO INFUSE PLT OVER 1 HR. VS STABLE, NO RESPRIATORY DISTRESS NOTED, PT CONT TO COMPLAIN OF 10/10 PAIN THROUGHOUT BODY. MORPHINE IVP GIVEN. CALL LIGHT WITHIN REACH.
--- NOTE | 2018-09-30 15:52 | NUR ---
ASSISTED PT TO REPOSITION TO L SIDE, HEEL PROTECTORS ON BLE, PILLOWS UNDER BOTH ARMS, PLT TRANSFUSING WITHOUT INCIDENT, CALL LIGHT WITHIN REACH.
--- NOTE | 2018-09-30 17:00 | NUR ---
BLOOD TRANSFUSION INITIATED, WITNESSED BY PRADEEP RN, VS STABLE, NO RESPIRATORY DISTRESS NOTED. 1 UNIT PRBC GIVEN TO DIALYSIS NURSE DONNA TO INFUSE DURING DIALYSIS. WILL REMAIN AT BEDSIDE FOR 15 MINS.
--- NOTE | 2018-09-30 17:15 | NUR ---
AFTER 15 MINS, NO ADVERSE REACTION, VS STABLE, NO RESPIRATORY DISTRESS NOTED, WILL CONTINUE TO INFUSE BLOOD DURING DIALYSIS.
--- NOTE | 2018-09-30 17:23 | NUR ---
BLOOD TRANSFUSION COMPLETE GIVEN DURING DIALYSIS. VS STABLE, NO RESPRIATORY DISTRESS NOTED.
--- NOTE | 2018-09-30 17:45 | NUR ---
PT ENCOURAGED TO EAT. PT STATES SHE HAS NO APPETITE AND REFUSING TO EAT. CONVINCED PT TO DRINK SIPS OF BOOST DRINK. PT ALSO ABLE TO SIP SPRITE AND WATER.
--- NOTE | 2018-09-30 17:50 | NUR ---
BLOOD TRANSFUSION INITIATED VIA DIALYSIS, WITNESSED BY DILCIA BRADY. VS STABLE, NO RESPRIATORY DISTRESS NOTED. WILL REMAIN AT BEDSIDE FOR 15 MINS TO OBSERVE FOR ADVERSE REACTIONS.
--- NOTE | 2018-09-30 18:05 | NUR ---
AFTER 15 MINS, NO ADVERSE REACTIONS, WILL CONT WITHE BLOOD TRANSFUSION VIA DIALYSIS. VS STABLE, NO RESPRIATORY DISTRESS NOTED.
--- NOTE | 2018-09-30 18:30 | NUR ---
BLOOD TRANSFUSION COMPLETE VIA DIALYSIS, VS STABLE , NO RESPRIATORY DISTRESS NOTED. DIALYSIS NURSE AT BEDSIDE.
--- NOTE | 2018-09-30 18:59 | NUR ---
PT COMPLAINING OF 10/10 PAIN AND NAUSEA, MORPHINE IVP GIVEN AND ZOFRAN IVP GIVEN. PT HAD LARGE SOFT BM. DIALYSIS NURSE DONNA STATES OKAY TO CHANGE PT DURING DIALYSIS. PT CLEANED, WHITE CARE DONE, CHG WIPES DONE, ALL LINENS CHANGED. PT PLACED IN SUPINE POSITION. CALL LIGHT WITHIN REACH. DIALYSIS NURSE AT BEDSIDE.
--- NOTE | 2018-09-30 19:05 | NUR ---
RECEIVED REPORT FROM EBONY BRADY. ASSUMING ALL CARE
--- NOTE | 2018-09-30 19:24 | NUR ---
ENDORSED CARE TO FRED BRADY.
--- NOTE | 2018-09-30 19:25 | NUR ---
RECEIVED PT LAYING IN BED. PT IS A/OX4. PT IS DROWSY AT THIS TIME. PT ABLE TO FOLLOW COMMANDS AND MAKE NEEDS KNOWN. PUPILS WITH SLUGGISH RESPONSE TO LIGHT, 3 MM BILAT. EENT FREE OF DISCHARGE. REJ IV IN PLACE AND LIJ SHEY IN PLACE WITH DRESSING CDI. TRACHEA MIDLINE. ICTERUS NOTED. BREATHING IS E/U ON 2 LPM VIA NC. LUNGS SOUND CLEAR TO BUL AND DIMIN TO BLL. SYMMETRICAL CHEST EXPANSION NOTED. S1/S2 HEART SOUNDS AUSCULTATED. CHEST WALL EQUAL AND SYMMETRICAL. PT DENIES ANY CP. PT CONNECTED TO FULL CONTENT COORDINATOR. HR 48, BP 115/63 MAP 81. WEAK PULSES NOTED TO BUE/BLE. +3 ANASARCA NOTED TO BODY. PT IS JAUNDICE. SKIN IS WARM AND DRY. D10 INFUSING @ 30 ML/HR. CAP REFIIL < 3 SECS. GENERALIZED WEAKNESS. NO JOINT SWELLING/DEFORMITY NOTED. FLEX BOOTS IN PLACE. PT ON BEDREST. PT IS ON REGULAR DIET. PT WITH POOR APPETITE. ABD IS SOFT, ROUND, TENDER TO PALPATION. BOWEL SOUNDS ACTIVE X4 QUADRANTS. PT C/O THROBBING ABD PAIN. DENIES ANY N/V. WHITE IS INTACT/SECURED, DRAINING VIA GRAVITY WITH BRANDON COLORED URINE. NO LABIAL EDEMA NOTED. PT RECEIVING DIALYSIS AT THIS TIME. SCATTERED ECCHYMOSIS AND TRACK DEJESUS NOTED. PT ABLE TO REPOSITION SELF INDEPENDENTLY. PT IS CALM AND COOPERATIVE. BED IN LOW POSITION. CALL LIGHT IN REACH. WILL CONT TO MONITOR.
--- NOTE | 2018-09-30 20:01 | NUR ---
DIALYSIS COMPLETED AT THIS TIME. 2 LITERS WERE REMOVED. POST DIALYSIS VITALS: HR 51, BP 139/71 MAP 101, RR 12, SPO2 99%. NO S/S OF ACUTE DISTRESS NOTED. WILL CONT TO MONITOR
--- NOTE | 2018-09-30 20:26 | NUR ---
NOTIFIED DR. ALONZO OF PT'S SUSTAINING HR IN THE MID 40'S. PT IS ASYMPTOMATIC. BP IS STABLE, CURRENT BP 137/70. PER DR. ALONZO, CONTINUE TO MONITOR. MADE AWARE PT RECEIVED 2 UNITS OF PRBC DURING DIALYSIS. PER DR. ALONZO, WILL ORDER REPEAT CBC.
[2018-09-30 20:48] LABS: RED CELL DISTRIBUTION WIDTH 16.1 % (11.5-14.5)
[2018-09-30 20:50] LABS: PLATELET COUNT 19 x10^3mcL (130-400)
[2018-09-30 20:51] LABS: BAND NEUTROPHIL 13 % (0-10); MONOCYTE 3 % (0-7); SEGMENTED NEUTROPHILS 79 % (37-75)
[2018-09-30 20:52] LABS: PLATELET MORPHOLOGY PLATELETS DECREASED; acanthocyte (spur cell) 1+; rbc morphology (normal/abnorm) ABNORMAL (NORMAL); schistocyte (helmet cell) 1+
--- NOTE | 2018-09-30 21:30 | NUR ---
PT HAD A MOD SIZE LOOSE BROWN BM. PERICARE PROVIDED. GOWN AND LINENS CHANGED
--- NOTE | 2018-10-01 00:17 | NUR ---
PT C/O ACHING BACK PAIN RATED 10/10. PT MEDICATED WITH MORPHINE PER EMAR. WILL CONT TO MONITOR
--- NOTE | 2018-10-01 00:33 | NUR ---
DR. PINK AT BEDSIDE. UPDATED ON PT'S STATUS. MADE AWARE FIRST BLOOD CULTURE CAME BACK NEGATIVE AND SECOND BLOOD CULTURE CAME BACK POSITIVE FOR PSEUDOMONAS. PER DR. PINK, CONTINUE WITH FLAGYL AND MEXIPINE. MELVA RICHARDSON PER PHARMACY. WILL CARRY OUT ORDER
[2018-10-01 03:20] VITALS: BP 124/68
--- NOTE | 2018-10-01 03:55 | NUR ---
FULL BED BATH PROVIDED. GOWN AND LINENS CHANGED. PICTURES TAKEN AND PLACED IN THE CHART. FLEX BOOTS REAPPLIED. BED IN LOW POSITION. CALL LIGHT IN REACH. WILL CONT TO MONITOR.
--- NOTE | 2018-10-01 04:55 | NUR ---
PT C/O GENERALIZED BODY ACHES RATED 10/10. PT MEDICATED WITH MORPHINE PER EMAR. WILL CONT TO MONITOR
[2018-10-01 05:48] LABS: RED CELL DISTRIBUTION WIDTH 16.6 % (11.5-14.5)
[2018-10-01 05:49] LABS: BAND NEUTROPHIL 13 % (0-10); MONOCYTE 3 % (0-7); PLATELET MORPHOLOGY PLATELETS DECREASED; SEGMENTED NEUTROPHILS 79 % (37-75); acanthocyte (spur cell) 1+; rbc morphology (normal/abnorm) ABNORMAL (NORMAL); schistocyte (helmet cell) 1+
[2018-10-01 06:00] LABS: PLATELET COUNT 16 x10^3mcL (130-400)
[2018-10-01 06:07] LABS: BILIRUBIN DIRECT 26.86 mg/dL (0.0-0.2); CALCIUM 7.4 mg/dL (8.5-10.1); CARBON DIOXIDE 30.9 mmol/L (21-32); CREATININE SERUM 3.2 mg/dL (0.6-1.0); MAGNESIUM 1.8 mg/dL (1.8-2.4); PHOSPHOROUS 2.3 mg/dL (2.5-4.9); POTASSIUM SERUM 4.3 mmol/L (3.5-5.1)
[2018-10-01 06:08] LABS: ALBUMIN 1.7 g/dL (3.4-5.0)
--- NOTE | 2018-10-01 06:08 | NUR ---
CRITICAL LAB RESULTS: HCT 20, PLT 16, BILI 31.60. DR. KNOX MADE AWARE
[2018-10-01 06:10] LABS: BILIRUBIN TOTAL 31.6 mg/dL (0.20-1.00)
--- NOTE | 2018-10-01 06:48 | NUR ---
DR. KNOX AT BEDSIDE FOR MSE. UPDATED ON PT'S STATUS
--- NOTE | 2018-10-01 07:10 | NUR ---
REPORT GIVEN TO NGOC CHAN RN FOR CONTINUITY OF CARE. ALL QUESTIONS/CONCERNS ADDRESSED AT THIS TIME. ENDORSING ALL
[2018-10-01 08:01] VITALS: Ht 167.6 cm; Wt 78.5 kg
[2018-10-01 08:57] VITALS: BP 117/64
[2018-10-01 09:26] VITALS: BP 117/64
--- NOTE | 2018-10-01 09:37 | NUR ---
PATIENT ROUNDS WITH DR. DUNLAP AND RESIDENTS. CHARGE NURSE AND PRIMARY NURSE AT BEDSIDE. UPDATES PROVIDED AND POC DISCUSSED.
--- NOTE | 2018-10-01 09:42 | NUR ---
NARESH HENDRIX SPOKE TO MOHINI FROM [facility] THE INPATIENT GRAIN INSPECTOR. CONTACT NUMBER IS [phone]. PER MOHINI, SHE IS STILL WORKING ON THE TRANSFER AND NO ICU BED IS AVAILABLE AT THIS TIME.
--- NOTE | 2018-10-01 11:40 | NUR ---
SPOKE WITH DR. KNOX REGARDING DOWNGRADING PATIENT TO TELE PER DR. LOPEZ. PER [facility], PATIENT HAS TO BE ON TELE FLOOR FOR 24 HOURS BEFORE BEING TRANSFERRED. [address]. KNOX TO PUT IN TRANSFER ORDERS AT THIS TIME. PATIENT DOWNGRADED TO TELEMENTRY, AWAITING BED AT THIS TIME.
--- NOTE | 2018-10-01 13:03 | NUR ---
HUMIDIFIER APPLIED TO THE SUPPLEMENTAL OXYGEN.
--- NOTE | 2018-10-01 15:20 | NUR ---
RECEIVED PT FROM ICU AAOX4, DROWSY. RESP SHALLOW WITH SHORT PAUSES, ON O2 AT 2LPM, O2 SAT 95%. PT VERY JAUNDICED, BILAT SCLERA YELLOW. SHOWING SB/SA ON TELE #4, DENIES CP OR PRESSURE. BOWEL SOUNDS ACTIVE, ABD SOFT, ROUND. POOR APPETITE. WHITE CATHETER DRAINING TEA COLORED URINE. NOTED WITH SCATTERED ECCHYMOSIS THROUGHOUT BODY, BUSINESS EDITOR. SMALL HEMATOMA NOTED TO RLE, CHANEL. GEN WEAKNESS. BILAT HEEL PROTECTORS IN PLACE. PT ABLE TO REPOSITION SELF IN BED. REJ IV IN PLACE, NO REDNESS OR SWELLING TO IV SITE. LEJ SHEY CATH, DRESSING C/D/I. BUE/BLE NON-PITTING EDEMA. C/O 8/10 GEN BODY PAIN, WILL MEDICATE ORDERED. ORIENTED TO ROOM AND SURROUNDINGS. BED IN LOW POSITION, CALL LIGHT WITHIN REACH. WILL CONTINUE TO MONITOR.
[2018-10-01 16:58] VITALS: BP 129/82
--- NOTE | 2018-10-01 17:56 | NUR ---
ENCOURAGED PT TO EAT DINNER. PT STATED "I JUST WANT MY SPRITE." PT GIVEN SPRITE REQUESTED. WILL CONTINUE TO MONITOR.
--- NOTE | 2018-10-01 18:00 | NUR ---
SPOKE WITH DIALYSIS STONE DRILLER REGARDING PT BEING SCHEDULED FOR HEMODIALYSIS TOMORROW 10/02.
--- NOTE | 2018-10-01 18:58 | NUR ---
PT RESTING IN BED WITH EYES CLOSED, AROUSABLE. RESP EVEN AND UNLABORED ON 2L O2 VIA NC. NO PAIN NOTED. PT'S FIANCEE AT BEDSIDE, UPDATED WITH PLAN OF CARE. BED IN LOW POSITION, CALL LIGHT WITHIN REACH. WILL ENDORSE TO ONCOMING SHIFT.
--- NOTE | 2018-10-01 19:30 | NUR ---
RECIEVED PATIENT AT START OF SHIFT SLEEPING, AROUSED WITH TACTILE STIMULUS. PATIENT A/O X4. ON TELE 4 SINUS ARYTHMIA/ARCHIE 58. SLIGHT NON-PITTING EDEMA NOTED TO BILATERAL UPPER/LOWER EXTREMITIES. SCATTERED BRUISES ALSO NOTED OVER PATIENT'S ENTIRE BODY, PICTURES IN CHART. JAUNDICE NOTED WELL. PATIENT ON 2L NC SATTING 95%. RESPIRATORY PATTERN IS IRREGULAR. PATIENT HOLDS BREATH FOR 10 SECOND INTERVALS THEN BREATHS RAPIDLY AND REPEATS. PATIENT STATES SHE DOES IT ON PURPOSE BECAUSE HER NOSE IS CONGESTED. BS ACTIVE. REJ IN PLACE, SALINE LOCKED AND PATENT. LIJ DILAYSIS CATHETER WITH PIG TAIL IN PLACE, SLAINE LOCKED. CALL LIGHT WITHIN REACH.
--- NOTE | 2018-10-01 20:29 | NUR ---
PATIENT GIVEN MORPHINE PER EMAR FOR REPORT OF 9/10 GENERAL BODY ACHES.
[2018-10-01 20:53] VITALS: BP 104/59
[2018-10-01 20:55] LABS: RED CELL DISTRIBUTION WIDTH 16.8 % (11.5-14.5)
--- NOTE | 2018-10-01 20:55 | NUR ---
RECIEVED CRITICAL RESULT CALL FROM LAB [facility] 6.1, HEMATOCRIT 17.4. DR HAMMOND PAGED AT [phone].
[2018-10-01 20:56] LABS: PLATELET COUNT 18 x10^3mcL (130-400)
--- NOTE | 2018-10-01 21:01 | NUR ---
DR. HAMMOND CALLED BACK AND WAS INFORMED OF HGB CRITICAL RESULT. HE VERBAZIZED HE WOULD PUT AN ORDER TO TRANSFUSE 1 UNIT OF PRBC.
[2018-10-01 21:39] LABS: BAND NEUTROPHIL 13 % (0-10); MONOCYTE 3 % (0-7); PLATELET MORPHOLOGY PLATELETS DECREASED; SEGMENTED NEUTROPHILS 75 % (37-75); acanthocyte (spur cell) 1+; rbc morphology (normal/abnorm) ABNORMAL (NORMAL); schistocyte (helmet cell) 1+
--- NOTE | 2018-10-01 23:05 | NUR ---
NO PRE-TRANSFUSION TYLENOL OR BENADRYL WILL BE GIVEN PER DR. HAMMOND DUE TO PATIENT'S LIVER DAMAGE.
--- NOTE | 2018-10-01 23:10 | NUR ---
BLOOD TRANSFUSION INITIATED AT THIS TIME, VERIFIED BY WALDEMAR BRADY. ALL VITALS ARE WITHIN NORMAL LIMITS. RATE IS 50 MLS/HR. WILL MONITOR FOR SIGNS OF TRANSFUSION REACTION.
--- NOTE | 2018-10-01 23:25 | NUR ---
NO SIGNS OF TRANSFUSION REACTION. SECOND SET OF VITALS ARE STILL WNL. INFUSION RATE INCREASED TO 85MLS/HR.
--- NOTE | 2018-10-02 | NUR ---
DIALYSIS CATHETHER DRESSING CHANGED DUE TO SOILAGE. STERILE TECHNIQUE MAINTAINED. NEW BIOPATCH AND DRESSING IN PLACE. REJ IV DRESSING CHANGED WELL. WHITE CARE PROVIDED. CHG BATH GIVEN. PATIENT'S GOWN REPLACED WELL. TRACE AMOUNTS OF RED BLOOD WAS NOTED DRAINING FROM PATIENT'S WHITE CATHETER DURING WHITE CARE.
--- NOTE | 2018-10-02 03:05 | NUR ---
BLOOD TRANSFUSION COMPLETE. NEW VITALS WNL. NO SX OF TRANSFUSION REACTION. NO LASIX NEEDED PER DR. HAMMOND. CALL LIGHT WITHIN REACH.
--- NOTE | 2018-10-02 04:00 | NUR ---
MORPHINE GIVEN PER EMAR FOR 9/10 GENERAL BODY PAIN.
[2018-10-02 04:27] LABS: RED CELL DISTRIBUTION WIDTH 16.2 % (11.5-14.5)
[2018-10-02 04:34] LABS: CALCIUM 7.6 mg/dL (8.5-10.1); CARBON DIOXIDE 28.8 mmol/L (21-32); PHOSPHOROUS 2.1 mg/dL (2.5-4.9); POTASSIUM SERUM 4.1 mmol/L (3.5-5.1)
[2018-10-02 04:42] LABS: ALBUMIN 1.6 g/dL (3.4-5.0); TOTAL PROTEIN, SERUM 4.4 g/dL (6.4-8.2)
[2018-10-02 04:44] LABS: BILIRUBIN TOTAL 18.32 mg/dL (0.20-1.00); CREATININE SERUM 4.8 mg/dL (0.6-1.0)
[2018-10-02 04:55] LABS: BAND NEUTROPHIL 20 % (0-10); SEGMENTED NEUTROPHILS 60 % (37-75); rbc morphology (normal/abnorm) NORMAL (NORMAL)
[2018-10-02 04:56] LABS: PLATELET MORPHOLOGY PLATELETS DECREASED
[2018-10-02 05:16] LABS: PLATELET COUNT 27 x10^3mcL (130-400)
[2018-10-02 06:03] VITALS: BP 139/80
--- NOTE | 2018-10-02 06:31 | NUR ---
PATIENT STATES HER PAIN IS A LITTLE BETTER, 7/10. 1L NC IN PLACE, SATTING 96%. IV INFUSING TO REJ, NO ERYTHEMA OR INFILTRATION. WHITE HAD ONLY 50 MLS OF OUTPUT ENTIRE SHIFT, DARK TEA COLOR. BUN/ CR INCREASED TO 50/4.8. HGB INCREASED TO 7.9 POST 1 UNIT PRBC TRANSFUSION. PATIENT IS ON TELE 4, SINUS ARRYTHMIA, BRADYCARDIC AT 58. CALL LIGHT WITHIN REACH. WILL ENDORSE CARE TO MORNING NURSE.
[2018-10-02 07:08] LABS: CK-BB 11 % (0); CK-MB 0 % (0-3); CK-MM 89 % (97-100); MACRO TYPE 1 0 % (Not Observed); MACRO TYPE 2 0 % (Not Observed)
--- NOTE | 2018-10-02 07:20 | NUR ---
RC'D PT RESTING IN BED LETHARGIC. A/A/O/X4, SPEECH CLEAR AND APPROPRIATE. PT DROWSY/LETHARGIC. ON TELE, PT DENIES CHEST PAIN/PRESSURE. PALP PULSES, EDEMA NOTED TO ALL EXTREMITIES. RESPIRATIONS EQUAL AND UNLABORED. LUNGS DIM IN BASES. ON 2L O2 VIA NC, DENIES SOB. ABDOMEN TENDER. ACTIVE BS. DENIES N/V. PT REPORTS POOR APPETITE/INTAKE. WHITE CATHETER WITH BRANDON URINE DRAINING TO GRAVOTY. GENERALIZED WEAKNESS. FALL PRECAUTIONS IN PLACE. JAUNDICED. SCATTERED ECCYMOSIS. IV PATENT AND INTACT. CORBIN BERNARD. IV PATENT AND INTACT. BED IN LOW POSITION. CALL LIGHT IN REACH. WILL CONTINUE TO MONITOR
--- NOTE | 2018-10-02 08:13 | NUR ---
AM MEDICATIONS GIVEN. PT TOLERATED WELL. RESPIRATIONS SHALLOW AND LABORED. ON 2L O2 VIA NC, DENIES SOB. PT C/O OF GENERALIZED DISCOMFORT. BED IN LOW POSITION. CALL LIGHT IN REACH. WILL CONTINTUE TO MONITOR
--- NOTE | 2018-10-02 08:48 | NUR ---
PT C/O OF PAIN 11/24, REQUESTING MORPHINE AT THIS TIME. MEDICATED PER EMAR. RESPIRATIONS SHALLOW AND LABORED, 22. ON 2L O2 VIA NC, DENIES SOB. BED IN LOW POSITION. CALL LIGHT IN REACH. WILL CONTINUE TO MONITOR
[2018-10-02 09:02] VITALS: BP 109/72
--- NOTE | 2018-10-02 10:30 | NUR ---
DR. LOPEZ PRESENT AT BEDSIDE. PT UPDATED ON CURRENT POC AT THIS TIME. ALL QUESTIONS AND CONCERNS ADDRESSED. PT VERBALIZED UNDERSTANSING OF INSTRUCTIONS. NG TUBE PLACED BY DR LOPEZ AT THIS TIME. NGTUBE TO LEFT NARE AT 57, SECURED IN PLACE WITH TAPE. AUSC FOR PLACEMENT, CONFIRMED BY DR LOPEZ. DR LOPEZ TO ORDER KUB FOR PLACEMENT. WILL CONT TO MONITOR
--- NOTE | 2018-10-02 10:40 | NUR ---
HD NURSE AT BEDSIDE. PROVIDED WITH PTS CURRENT LABS AND ORDER AT THIS TIME. SETTING UP HD AT THIS TIME. BED IN LOW POSITION. CALL LIGHT IN REACH. WILL CONTINUE TO MONITOR
--- NOTE | 2018-10-02 11:26 | NUR ---
PT RESTING IN BED RC'ING HD AT THIS TIME. RESPIRATIONS EQUAL AND SHALLOW. ON 2L O2 VIA NC, DENIES SOB. NGTUBE NOTED TO LEFT NARE, SECURED IN PLACE WITH TAPE. AWAITING RESULTS FOR PLACEMENT. BED IN LOW POSITION. CALL LIGHT IN REACH. WILL CONTINUE TO MONITOR
[2018-10-02 12:58] VITALS: BP 113/78
--- NOTE | 2018-10-02 14:14 | NUR ---
HD COMPLETE AT THIS TIME. HD REMOVED 2L. PT TOLERATED WELL. VITALS STABLE. LAST BP 136/65 HR 88. RESPIRATIONS SHALLOW AND LABORED. ON 2L O2 VIA NC, DENIES SOB. BED IN LOW POSITION. CALL LIGHT IN REACH. WILL CONTINUE TO MONITOR
--- NOTE | 2018-10-02 14:36 | NUR ---
Follow-up Nutrition Assessment: 260T/B DEVYN VERGARA FU HR Dx: Severe sepsis PMHx: IV Drug use Labs: (10/02) BUN 50H, CREAT 4.8H, ALB 1.6L, BILI T 18.32H, AST 63H Meds: Albuminar-25, Colace, D 10%, Flagyl, protonix, xifaxan, Zofran Diet: Full liquid diet+Jevity 1.2 @ 20 ml/hr, goal 50ml/hr, advance Q8H, FWF 30ml Q4H PO Intake: (10/01) 6% average Weights: (10/01) 75.5 kg, (09/28) 64 kg (weight fluctuations might be d/t dialysis) Skin: scattered ecchymosis, small hematoma to RLE, Generalized jaundice, Juan:15 I/Os: 1810/320 Edema: noted to all extremities GI: Last BM: 10/01 RDN Visit (10/02): Patient was receiving hemodialysis. Patient's skin appeared yellow likely d/t jaundice. Patient said that she feels hungry and wanted to drink Ensure. She was assured that she will be getting an ONS Nepro with her meals instead of ensure d/t renal condition. Per Progress Note (10/02) Patient was transferred out of the ICU to telemetry yesterday afternoon. The process for transfer to higher level of care has been initiated per GI recommendations. Estimated Nutritional Needs based on actual body weight 64 kg Energy: 7708-2041 kcal/d (30-35 kcal/kg) Protein: 77-90 g/d (1.2-1.4 g/kg) Fluid: per MD Nutrition Diagnosis 1. Inadequate protein energy intake related to lethargy as evidenced by PO intake 0% x 3 meals. (ongoing) 2. Altered nutrition related labs related to JOYCE as evidenced by elevated BUN 50, CREAT 4.8 Intervention 1. Recommend changing diet order to Renal full liquid + Nepro @ 20ml/hr, goal 40ml/hr. FWF (Per MD). At goal rate, tube feeding will provide 1730 kcal and 78g protein. Monitor/Evaluate Goal: Have pt meet at least 75% of estimated needs Monitor: PO intake, Labs, GI function F/U in 2-3 days as high risk 10/04-
--- NOTE | 2018-10-02 15:34 | NUR ---
SCREEN FOR LOW MILLER SCALE AT RISK PRESSURE ULCER INJURY PREVENTION INTERVENTIONS FOLLOW: -TURN AND REPOSITION PATIENT Q 2H OFFLOAD SACRAL COCCYX, LEFT AND RIGHT HIPS -ASSESS AND MONITOR SKIN CONDITION DURING POSITION CHANGE -OFFLOAD BILATERAL HEELS BY PLACING PILLOWS UNDER CALVES AT ALL TIMES, UNLESS OTHERWISE CONTRAINDICATED -PRESSURE REDISTRIBUTION SURFACE THERAPY -KEEP SKIN CLEAN AND DRY AT ALL TIMES.
[2018-10-02 17:06] VITALS: BP 133/76
--- NOTE | 2018-10-02 18:28 | NUR ---
PT RESTING IN BED WTITH SHALLOW/LABORED, ON 2L O2 VIA NC, DENIES SOB. ON TELE, DENIES CHEST PAIN/PRESSURE. NGTUBE NOTED TO LEFT NARE, SECURED IN PLACE WITH TAPE. TUBE FEEDING INFUSING AT 20ML/HR WITH 30FWF Q4H. GENERALIZED WEAKNESS. PT ASSISTED WITH REPOSITION. INCREASED JAUNDICED SKIN NOTED AT THIS TIME. IV PATENT AND INTACT. BED IN LOW POSTION. CALL LIGHT IN REACH. WILL ENDORSE TO COMMERCIAL UNDERWRITER RN
--- NOTE | 2018-10-02 20:18 | NUR ---
RECIEVED PT FROM DAY NURSE IN BED RESTING WITH EYES CLOSED. PT DROWSY/ LETHARGIC. ON TELE #4. PT SHOWS NO SIGNS AND SYMPTOMS OF PAIN. PALPABLE PULSES. EDEMA NOTED IN ALL EXTREMITIES, PITTING ON BILATERAL FEET. RESPIRATIONS SHALLOW, LUNGS DIM IN BASES. ON 2L NC, NO SIGNS OF SOB. ACTIVE BOWEL SOUNDS, NO PAIN ON PALPATION. LEFT NARE NG TUBE FEED RUNNING AT 20ML/HR. NO N/V. WHITE CATH WITH BRANDON COLORED FLUID DRAINING TO GRAVITY. JAUNCIDED SKIN AND SCALERA, SCATTERED ECCHYMOSIS THROUGHOUT BODY. FALL PRECAUTIONS IN PLACE. IV PATENT AND INFUSING. CORBIN BERNARD. BED IN LOWEST POSITION. CALL LIGHT WITHIN REACH. WILL CONTINUE MONITOR.
--- NOTE | 2018-10-02 20:50 | NUR ---
SPOKE TO DR.LE GÓMEZ MADE AWARE OF CORPORATE QUALITY MANAGER REC FOR TUBE FEEDING. STATED WILL LET DAY TEAM KNOW IN AM. NO CHANGES IN ORDERS AT THIS TIME.
[2018-10-02 21:22] VITALS: BP 117/68
--- NOTE | 2018-10-03 | NUR ---
CHECKED RESIDUAL, 5ML RESIDUAL REPLACED. TUBE FEEDING RUNNING AT 30 ML/HR. PT COMPLAINING OF PAIN AT THIS TIME, 10/10 GENERALIZED BODY ACHES. GAVE MORPHINE PER ORDER. CALL LIGHT WITHIN REACH. BED AT LOWEST POSITION. WILL CONTINUE TO MONITOR.
--- NOTE | 2018-10-03 01:13 | NUR ---
RECIEVED CALL FROM JAREK FROM [facility]. BED AVAILABLE UNIT 6100 BED 11. RECIEVING PHYSICIAN . SPOKE TO AND MADE AWARE, STATED WITH PLACE DISCHARGE ORDERS. CALLED [facility], [facility] TRANSPORT SCHEDULED FOR 229.
[2018-10-03] MEDS ORDERED: FLA500I IV (01:27)
[2018-10-03] MEDS ORDERED: XIFAXAN550 M1 PO (01:27)
[2018-10-03] MEDS ORDERED: CEFEPIME1 GM/50 ML IV (01:27)
--- NOTE | 2018-10-03 01:36 | NUR ---
CALLED [facility] . REPORT GIVEN TO THANH BRADY. ALL QUESTIONS AND CONCERN ADDRESSED.
--- NOTE | 2018-10-03 02:12 | NUR ---
PT REFUSING TRANSFER. STATES SHE WILL ONLY GO HOME, BECAUSE SHE NEEDS TO LOOK AFTER HER DOG AND NO ONE ELSE CAN WATCH THE DOG. PT MADE AWARE OF RISKS INVOLVED IN GOING HOME. WILL LIKELY NOT BE DISCHARGED DUE TO CONDITION AND WILL HAVE TO AMA. PT VERBALIZED UNDERSTANDING, AND STILL REFUSING TRANSFER. CHARGE NURSE, FINA, MADE AWARE TO SPEAK TO PATIENT. PT STILL REFUSING. SPOKE TO DR. HAMMOND AND MADE AWARE. INFORMED [facility], [facility] AND UNIT ([facility]) OF PTS REFUSAL TO TRANSFER. TRANSFER CANCELLED BY JAREK.
--- NOTE | 2018-10-03 03:53 | NUR ---
RECIEVED CALL FROM TELE, HR LOW 43. WENT TO ASSES PT, PT SLEEPING. ASYMPTOMATIC BP 122/71. DR. CHAND MADE AWARE VIA PAGE GATE. WILL CONTINUE TO MONITOR.
--- NOTE | 2018-10-03 05:24 | NUR ---
PT RESTING IN BED EYES CLOSED. NO S/S OF PAIN AT THIS TIME. LEFT NARE NG RUNNING JEVITY 1.2. RESIDUAL CHECKED, NO RESIDUAL. INCREASED TO 40 ML/HR PER ORDER. PATIENT HAD LARGE LOOSE BM AT THIS TIME, LINENS AND GOWN CHANGED. PT CLEANED, WHITE CARE COMPLETED. CALL LIGHT WITHIN REACH. BED AT LOWEST POSITION. WILL ENDORSE T0 DAY NURSE.
[2018-10-03 05:39] VITALS: BP 113/56
--- NOTE | 2018-10-03 06:42 | NUR ---
I HAVE REVIEWED THE DATA COLLECTION BY RN: HANK VEGA ENTERED ON 10/02-10/03 I CONCUR WITH THE DATA AND ANY EXCEPTIONS OR COMMENTS ARE LISTED BELOW:
[2018-10-03 06:51] LABS: CALCIUM 7.6 mg/dL (8.5-10.1); CARBON DIOXIDE 32.9 mmol/L (21-32); PHOSPHOROUS 3.2 mg/dL (2.5-4.9); POTASSIUM SERUM 3.3 mmol/L (3.5-5.1)
[2018-10-03 06:53] LABS: CREATININE SERUM 5.1 mg/dL (0.6-1.0)
[2018-10-03 07:32] VITALS: BP 104/62
[2018-10-03 07:33] LABS: PLATELET COUNT 74 x10^3mcL (130-400); RED CELL DISTRIBUTION WIDTH 17.3 % (11.5-14.5)
--- NOTE | 2018-10-03 07:35 | NUR ---
RECEIVED PT RESTING IN BED WITH EYES CLOSED, AROUSABLE. RESP EVEN AND UNLABORED ON O2 2L NC. NO PAIN NOTED. WITH NGT TO L NARE, TF INFUSING AT 40 ML/HR. PT JAUNDICED, WITH SCATTERED ECCHYMOSIS THROUGHOUT BODY, FACILITIES ADMINISTRATOR. SMALL HEMATOMA RLE, CHANEL. PT ABLE TO REPOSITION SELF IN BED. FALL PRECAUTIONS. IV TO REJ, NO REDNESS OR SWELLING NOTED. BED IN LOW POSITION, CALL LIGHT WITHIN REACH. WILL CONTINUE TO MONITOR.
[2018-10-03 09:31] LABS: BILIRUBIN DIRECT 4.14 mg/dL (0.0-0.2); BILIRUBIN TOTAL 5.2 mg/dL (0.20-1.00)
[2018-10-03 09:32] LABS: ALBUMIN 1.8 g/dL (3.4-5.0); TOTAL PROTEIN, SERUM 5.3 g/dL (6.4-8.2)
[2018-10-03 11:32] LABS: BAND NEUTROPHIL 5 % (0-10); BASOPHIL 0 % (0-2); MONOCYTE 12 % (0-7); SEGMENTED NEUTROPHILS 71 % (37-75)
[2018-10-03 11:33] LABS: PLATELET MORPHOLOGY PLATELETS DECREASED
[2018-10-03 11:34] LABS: rbc morphology (normal/abnorm) ABNORMAL (NORMAL); schistocyte (helmet cell) 2+
[2018-10-03 12:49] VITALS: BP 134/78
--- NOTE | 2018-10-03 15:02 | NUR ---
PT RESTING IN BED. NO ACUTE DISTRESS. AAOX4, DROWSY. SHALLOW BREATHING WITH PERIODS OF PAUSES, O2 SAT 96% ON O2 2LPM VIA NC. TF INCREASED TO 50 ML/HR, RESIDUAL 180 ML, REPLACED. HOB ELEVATED. WHITE CATHETER WITH TEA COLORED OUTPUT. IV TO REJ WITH NO REDNESS OR SWELLING. CALL LIGHT WITHIN REACH. WILL CONTINUE TO MONITOR.
[2018-10-03 16:24] VITALS: BP 114/69
--- NOTE | 2018-10-03 16:32 | NUR ---
SPOKE WITH DANYELEL FROM [facility] REGARDING BED AVAILABILITY FOR PT. PT WILL BE GOING TO UNIT 6100, ROOM 6101 BED 1. ACCEPTING PHYSICIAN IS DR. WATT. REPORT TO BE CALLED TO [phone]. QUINCY LUX CM NOTIFIED. WILL CONTINUE TO MONITOR.
--- NOTE | 2018-10-03 18:31 | NUR ---
SPOKE WITH PT'S INGRID NEWTON OVER THE PHONE REGARDING PT'S TRANSFER TO [facility] AND GAVE INFO FOR ROOM NUMBER AND TRANSPORTATION TIME PER PT'S REQUEST. PT AND INGRID AGREEABLE WITH PLAN OF CARE.
--- NOTE | 2018-10-03 18:45 | NUR ---
PT RESTING IN BED. NO ACUTE DISTRESS. SLEEPING BUT EASILY AROUSABLE. NO PAIN NOTED. BREATHING EVEN AND UNLABORED ON 1L NC O2. IV TO REJ, NO REDNESS OR SWELLING NOTED. EDGAR GARCIA, DRESSING C/D/I. NGT TO L NARE WITH TF INFUSING AT 50 ML/HR, FWF 30 ML Q4H. HOB ELEVATED. BED IN LOW POSITION, CALL LIGHT WITHIN REACH. WILL ENDORSE TO ONCOMING SHIFT.
--- NOTE | 2018-10-03 19:20 | NUR ---
AOX4. TELE #4. SR. LUNGS CLEAR ON NC @ 1L. DENIES SOB. PULSES PALPABLE. GENERALIZED EDEMA. BOWEL SOUNDS ACTIVE. NGT TO L NARE WITH TUBE FEEDING JEVITY RUNNING @ 50 ML/HR WITH FWF 30 ML Q4H, RESIDUAL 120 ML REPLACED. WHITE IN PLACE WITH TEA COLORED URINE. HD ACCESS TO LIJ, DRESSING CDI. PT HAS SCATTERED DRY SCABS TO BUE AND BLE. DRESSING TO RLE, CDI. C/O GENERALIZED PAIN 07/25. SL TO REJ, DRESSING CDI. BED IN LOWEST POSITION, 2 SIDE RAILS UP, CALL LIGHT IN REACH. INSTRUCTED TO CALL FOR ASSISTANCE.
--- NOTE | 2018-10-03 20:35 | NUR ---
REPORT CALLED TO RECEIVING NURSE JAI AT [facility]. ATTEMPTED TO CONTACT PT SIG. OTHER BY HOME AND WORK NUMBER FOUND ON FACE SHEET, NO ANSWER.
[2018-10-03 21:02] VITALS: BP 135/79
--- NOTE | 2018-10-03 21:35 | NUR ---
[facility] CALLED TO DELAY TRANSPORT TO 1 HOUR FROM NOW.
--- NOTE | 2018-10-03 23:13 | NUR ---
[facility] AT BEDSIDE FOR TRANSFER TO [facility] ROOM 6101 BED 1. TELE BOX RETURNED TO MONITOR. NGT, WHITE, LEJ, RIJ HD ACCESS ALL INTACT. PT IN NO ACUTE DISTRESS.
== END 2018-10-03 23:15 | disposition short-term general hospital (02) | DRG 720 ==
LOC: ED 16:04 → IC 19:22 → DU 19:22 → IC 19:35 → DU 10-01 15:08
PROVIDERS: Emergency Medicine; General Practice; Internal Medicine; ADMIT Internal Medicine
PROC: 30233K1 Transfusion of Nonautologous Frozen Plasma into Peripheral Vein, Percutaneous Approach (ICD-10-PCS; 2018-09-27)
PROC: 02HV33Z Insertion of Infusion Device into Superior Vena Cava, Percutaneous Approach (ICD-10-PCS; principal; 2018-09-28)
PROC: B548ZZA Ultrasonography of Superior Vena Cava, Guidance (ICD-10-PCS; 2018-09-28)
PROC: 5A1D70Z Performance of Urinary Filtration, Intermittent, Less than 6 Hours Per Day (ICD-10-PCS; 2018-09-28)
PROC: 30233R1 Transfusion of Nonautologous Platelets into Peripheral Vein, Percutaneous Approach (ICD-10-PCS; 2018-09-29)
PROC: 5A1D70Z Performance of Urinary Filtration, Intermittent, Less than 6 Hours Per Day (ICD-10-PCS; 2018-09-29)
PROC: 30233N1 Transfusion of Nonautologous Red Blood Cells into Peripheral Vein, Percutaneous Approach (ICD-10-PCS; 2018-09-30)
PROC: 5A1D70Z Performance of Urinary Filtration, Intermittent, Less than 6 Hours Per Day (ICD-10-PCS; 2018-09-30)
PROC: 5A1D70Z Performance of Urinary Filtration, Intermittent, Less than 6 Hours Per Day (ICD-10-PCS; 2018-10-02)
DX: A41.52 Sepsis due to Pseudomonas (principal); D65 Disseminated intravascular coagulation [defibrination syndrome]; E43 Unspecified severe protein-calorie malnutrition; I21.A1 Myocardial infarction type 2; J96.01 Acute respiratory failure with hypoxia; K76.7 Hepatorenal syndrome; K72.90 Hepatic failure, unspecified without coma; E83.39 Other disorders of phosphorus metabolism; N17.0 Acute kidney failure with tubular necrosis; R65.21 Severe sepsis with septic shock; F11.10 Opioid abuse, uncomplicated; E87.6 Hypokalemia; G92 Toxic encephalopathy; D64.9 Anemia, unspecified; N71.9 Inflammatory disease of uterus, unspecified; F12.10 Cannabis abuse, uncomplicated; F17.210 Nicotine dependence, cigarettes, uncomplicated; E83.42 Hypomagnesemia; E87.0 Hyperosmolality and hypernatremia; E78.1 Pure hyperglyceridemia; E16.2 Hypoglycemia, unspecified; Z68.21 Body mass index [BMI] 21.0-21.9, adult; Z91.19 Patient's noncompliance with other medical treatment and regimen; Z98.1 Arthrodesis status
CPT/HCPCS: 36556; 36600; 82962; 84439; 85378; B4164; G0378; G0480; J0290; J0692; J0696; J1885; J2001; J2270; J2310; J2405; J2543; J2550; J3260; J3370; J3475; J3480; J3490; J7030; J7040; J7042; J7050; J7060; J8597; P9016; P9035; P9059; Q0092

== ENCOUNTER 2018-10-05 21:10 | Inpatient (IN) | payer OTHER ==
[~2018-10-05] VITALS: Ht 167.6 cm; Wt 80.3 kg
--- NOTE | 2018-10-05 19:52 | NUR ---
REC'D CALL FROM [facility] [place] FOR REPORT
[~2018-10-05 21:10] MED LIST changes: +CEFEPIME1 GM/50 ML IV; +FLA500I IV; +XIFAXAN550 M1 PO
--- NOTE | 2018-10-05 21:10 | NUR ---
RECEIVED PT FROM [facility]. PT ADMIT FOR RENAL FAILURE, SEPSIS, PT IS A/O X4, VERBAL RESPONSIVE, LUNG SOUND CLEAR BILATERAL, NO COUGH, NO SOB, PT DENY ANY CHEST PAIN OR DISCOMFORT, BOWEL SOUND PRESENT ALL 4 QUADRANTS, DISTENTED. PEDAL PULSE PRESENT BOTH FEET, +2 EDEMA ALL 4 EXTREMITIES. THERE ARE MULIPLE SCABS AT RUE, BLE AND ABD. SHEY CATH AT LEFT NECK. PER PT AND NURSE FROM [facility] THE CATH IS CLOTTED. ALL ADLS ASSIST, ALL NEED MET, CALL LIGHT IN REACH, WILL CONTINUE TO MONITOR.
--- NOTE | 2018-10-05 21:10 | NUR ---
RECEIVED PT FROM ER. PT ADMIT FOR RENAL FAILURE, SEPSIS, PT IS A/O X4, VERBAL RESPONSIVE, LUNG SOUND CLEAR BILATERAL, NO COUGH, NO SOB, PT DENY ANY CHEST PAIN OR DISCOMFORT, BOWEL SOUND PRESENT ALL 4 QUADRANTS, DISTENTED. PEDAL PULSE PRESENT BOTH FEET, +2 EDEMA ALL 4 EXTREMITIES. THERE ARE MULIPLE SCABS AT RUE, BLE AND ABD. SHEY CATH AT LEFT NECK. PER PT AND NURSE FROM [facility] THE CATH IS CLOTTED. ALL ADLS ASSIST, ALL NEED MET, CALL LIGHT IN REACH, WILL CONTINUE TO MONITOR.
[2018-10-05 21:42] VITALS: BP 154/86
--- NOTE | 2018-10-05 22:08 | NUR ---
REC'D REPORT FROM MADDY RN. PT RESTING IN BED WITH EYES CLOSED. AWAKENS WITH VERBAL STIMULI. AAOX4, SPEECH CLEAR, FOLLOWS COMMANDS. TELE 23 APPLIED, SB, HR 59. DENIES CP, DIZZINESS, OR PALPITATIONS. DENIES RESP DISTRESS OR SOB. BREATHING EVEN/UNLABORED ON RA. PITTING EDEMA BUE/BLE. ABD SOFT/ROUND. C/O TENDERNESS WITH PALPATION. VOIDING FREELY. GENERALIZED WEAKNESS BUT AMBULATORY. GENERALIZED SCABS- PICTURES OBTAINED BY MADDY. C/O BLE AND LOWER BACK PAIN, ACHING 10. APPEARS COMFORTABLE. WILL MEDICATE ONCE ORDERS ARE ENTERED. HERBER SHEY CATH WITH SIDE PORT. ORIENTED TO DEVICES AND SURROUNDINGS. CALL LIGHT WITHIN REACH, BED AT LOWEST POSITION. WILL CONTINUE TO MONITOR.
--- NOTE | 2018-10-05 22:55 | NUR ---
DR. CHAND AT BEDSIDE TO SPEAK TO THE PT.
--- NOTE | 2018-10-06 00:03 | NUR ---
PHLEBOTIMIST AT BEDSIDE TO DRAW BLOOD CULTURES. SEVERAL ATTEMPTS MADE BEFORE SUCCESSFULLY DRAWING. RN ATTEMPTED TO START IV. POKED TWICE BUT UNSUCCESSFUL. PT UPSET AND REFUSING IV START.
--- NOTE | 2018-10-06 00:28 | NUR ---
RADIOLOGY CALLED TO HAVE CXR READ.
[2018-10-06 00:31] LABS: microscopic required? YES; urine erythrocyte 3+ (NEGATIVE)
[2018-10-06 00:43] LABS: AMPHETAMINE QUAL UR NONE DETECTED (See below)
--- NOTE | 2018-10-06 01:36 | NUR ---
PT RESTING IN BED WITH EYES CLOSED. LAYING ON R SIDE. NO SIGNS OF DISTRESS OR PAIN NOTED. BREATHING EVEN/UNLABORED ON RA. CALL LIGHT WITHIN REACH, BED AT LOWEST POSITION. WILL CONTINUE TO MONITOR.
[2018-10-06 04:54] VITALS: BP 140/85
--- NOTE | 2018-10-06 05:28 | NUR ---
PT WALKED AROUND THE UNIT. STATED SHE COULDN'T SLEEP. BACK IN BED. C/O 12/25 BLE AND BACK PAIN, ACHING. NORCO GIVEN PER ORDER. SCDS APPLIED TO BLE. BREATHING EVEN/UNLABORED. NO SIGNIFICANT CHANGES DURING SHIFT. CALL LIGHT WITHIN REACH, BED AT LOWEST POSITION. WILL ENDORSE TO DAY NURSE.
--- NOTE | 2018-10-06 07:09 | NUR ---
RECEIVED REPORT FROM BRIT BRADY. PT SLEEPING COMFORTABLY IN BED. SHEY CATH TO LIJ IS PATENT AND INFUSING NS @ 10 ML/HR. NO REDNESS OR PAIN. BLOOD NOTED AT INSERTION SITE. TELE # [address] NO INDICATION OF CHEST PAIN. PT ON ROMMAIR. NO C/O SOB AND NO DISTRESS NOTED. ALL QUESTIONS AND CONCERNS ADDRESSED.
[2018-10-06 08:27] VITALS: BP 162/87
[2018-10-06 08:34] LABS: MAGNESIUM 1.9 mg/dL (1.8-2.4); PHOSPHOROUS 6.1 mg/dL (2.5-4.9)
[2018-10-06 08:37] LABS: CALCIUM 8.2 mg/dL (8.5-10.1); CARBON DIOXIDE 23.7 mmol/L (21-32); POTASSIUM SERUM 4.1 mmol/L (3.5-5.1)
[2018-10-06 08:47] LABS: ALBUMIN 2.1 g/dL (3.4-5.0); CREATININE SERUM 8.3 mg/dL (0.6-1.0); TOTAL PROTEIN, SERUM 4.9 g/dL (6.4-8.2)
[2018-10-06 09:43] LABS: PLATELET COUNT 257 x10^3mcL (130-400)
--- NOTE | 2018-10-06 09:43 | NUR ---
ROUNDS: DR MC, RESIDENTS, PRIMARY RN AND INTERNET RETAILER AT BEDSIDE. DISCUSSED PLAN OF CARE AND AWAITING NEPHROLOGY CONSULT TO ASSESS FOR CONTINUED DIALYSIS. PT VERBALIZED UNDERSTANDING AND ALL QUESTIONS AND CONCERNS WERE ADDRESSED.
[2018-10-06 09:44] LABS: RED CELL DISTRIBUTION WIDTH 17.9 % (11.5-14.5)
[2018-10-06 11:17] LABS: BASOPHIL 0 % (0-2); METAMYELOCTE 1 % (0-2); MONOCYTE 8 % (0-7); SEGMENTED NEUTROPHILS 68 % (37-75)
[2018-10-06 11:18] LABS: BAND NEUTROPHIL 5 % (0-10)
[2018-10-06 11:23] LABS: PLATELET MORPHOLOGY PLATELETS NORMAL; rbc morphology (normal/abnorm) ABNORMAL (NORMAL)
[2018-10-06 11:25] LABS: schistocyte (helmet cell) 1+
[2018-10-06 12:38] VITALS: BP 165/92
--- NOTE | 2018-10-06 12:55 | NUR ---
SPOKE WITH PHARMACY TO ASSESS STATUS OF ZOSYN DELIVERY. ZOSYN WILL BE BROUGHT UP SHORTLY.
--- NOTE | 2018-10-06 12:59 | NUR ---
IN TO SEE PATIENT AND ASSESS NEEDS AFTER LUNCH. PT RESTING IN BED C/O CONTINUED PAIN. REPORTS NORCO ONLY REDUCED PAIN BY A LITTLE. ALL OTHER NEEDS MET.
[2018-10-06 17:13] VITALS: BP 146/79
--- NOTE | 2018-10-06 18:39 | NUR ---
DR DEL RIO IN TO SEE AND ASSESS PATIENT. DISCUSSED NO KIDNEY RECOVERY. PT TO HAVE DIALYSIS TONIGHT AND BE ON [address] DEL RIO NOTIFIED THAT DIALYSIS AT [facility] ON 10/04/18 WAS STOPPED EARLY DUE TO FLOW ISSUES AND ONLY 800 ML WAS REMOVED. ALSO DISCUSSED WITH THE PATIENT THE POSSIBILITY OF OUTPATIENT DIALYSIS 3 TIMES A WEEK UPON DISCHARGE IF KIDNEY FUNCTION DOES NOT IMPROVE. PATIENT VERBALIZED UNDERSTANDING AND ALL QUESTIONS AND CONCERNS WERE ADDRESSED.
--- NOTE | 2018-10-06 18:58 | NUR ---
JACKELYN CALLED TO INFORM OF DIALYSIS ORDER TONIGHT FROM DR DEL RIO.
--- NOTE | 2018-10-06 19:10 | NUR ---
REC'D PT FROM DAY NURSE. PT RESTING IN BED. AAOX4, SPEECH CLEAR, FOLLOWS COMMANDS. TELE 23. DENIES CP, DIZZINESS, OR PALPITATIONS. DENIES RESP DISTRESS OR SOB. BREATHING EVEN/UNLABORED ON RA. TRACE PITTING EDEMA BUE/BLE. ABD SOFT/ROUND/SLIGHTLY DISTENDED. DENIES ABD PAIN, TENDERNESS, OR N/V. VOIDING SMALL AMOUNTS. AMBULATORY. SCABS DISCOLORATION NOTED TO BUE/BLE AND ABD. NO OPEN WOUNDS OR LESIONS. HD SHEY TO [facility], PLANNED HD TONIGHT. ATTACHED IS [facility] IV PORT, FLUSHED AND PATENT. FLUID RESTRICTION OF 1500 ML/DAY. PT VERBALIZED UNDERSTANDING. CALL LIGHT WITHIN REACH, BED AT LOWEST POSITION. WILL CONTINUE TO MONITOR.
--- NOTE | 2018-10-06 19:19 | NUR ---
REPORT GIVEN TO BRIT BRADY. PT RESTING IN BED. ENDORSED THAT PATIENT WAS JUST SEEN BY DR DEL RIO AND DIALYSIS WAS ORDERED FOR TONIGHT, [facility] HAS BEEN CALLED, [facility] WAS ORDERED FOR AFTER DIALYSIS AND PATIENT IS NOW ON 1500 ML/DAY FLUID RESTRICTION. ALL QUESTIONS AND CONCERNS ADDRESSED.
--- NOTE | 2018-10-06 20:54 | NUR ---
JACKELYN HD NURSE, AT BEDSIDE SETTING UP FOR HD. ORDERS AND LABS PRINTED OUT FOR HD NURSE. CONSENT OBTAINED.
[2018-10-06 21:19] VITALS: BP 144/86
--- NOTE | 2018-10-06 22:22 | NUR ---
HD IN PROGRESS. PER HD NURSE, FLOW PROBLEMS WITH SHELBYElena KAT. STATES ABLE TO TAKE FLUID OUT BUT ZERO CLEARANCE (UNABLE TO TAKE TOXINS OUT). PT ALSO CRYING IN PAIN, C/O BLE AND BACK PAIN. SEVERE 01/24. NORCO NOT YET DUE. SPOKE TO DR. BOSWELL AND MADE AWARE OF HD FLOW ISSUES ANS REQUESTED STRONGER PAIN MEDICATION.
--- NOTE | 2018-10-07 00:13 | NUR ---
HD COMPLETED, 3L OUT. DRESSING TO LIJ CHANGED BY HD NURSE. PT TOLERATED PROCEDURE WELL. BP 144/89. NO COMPLAINTS AT THIS TIME. LAYING ON SIDE. BREATHING EVEN/UNLABORED ON RA. WILL CONTINUE TO MONITOR.
--- NOTE | 2018-10-07 02:42 | NUR ---
PT C/O BLE PAIN 12/25. NORCO GIVEN PER ORDER. ALSO C/O FEELING HOT AND SWEATY. DENIES CHILLS. TEMP 99.6. AC TURNED ON AND ICE PACK GIVEN. NICOTINE PATCH NOTED TO PRIETO FROM CABLE. PT STATES SHE SMOKES 1 PPD AND WOULD LIKE NICOTINE PATCHES DURING THIS HOSPITALIZATION. DR. POTTER MADE AWARE VIA [employer].
--- NOTE | 2018-10-07 05:43 | NUR ---
PT RESTING IN BED WITH EYES CLOSED. NO SIGNS OF DISTRESS OR PAIN NOTED. BREATHING EVEN/UNLABORED ON RA. 177 LBS THIS AM. 4 LBS DOWN FROM LAST NIGHT S/P HD. NPO FOR POSS NEW HD CATH PLACEMENT. CALL LIGHT WITHIN REACH, BED AT LOWEST POSITION. WILL ENDORSE TO DAY NURSE.
[2018-10-07 06:07] VITALS: BP 141/86
--- NOTE | 2018-10-07 07:00 | NUR ---
RECEIVED PT FROM SHIFT NURSE AWAKE C/O OF PAIN. NO ACUTE DISTRESS NOTED. RESP EVEN AND UNLABORED ON RA. IV INTACT AND PATENT. CALL LIGHT WITHIN REACH. WILL CONTINUE TO MONITOR.
--- NOTE | 2018-10-07 07:01 | NUR ---
PT C/O 9/10 BLE PAIN. NORCO GIVEN PER ORDER. REPORT ENDORSED TO NAVNEET BRADY.
--- NOTE | 2018-10-07 07:10 | NUR ---
RECEIVED PT FROM SHIFT NURSE AWAKE COMPLAINING OF PAIN. WILL MEDICATE PER EMAR. RESP EVEN AND UNLABORED ON RA. IV INTACT AND PATENT. BED IN LOW POSITION. CALL LIGHT WITHIN REACH. WILL CONTINUE TO MONITOR.
--- NOTE | 2018-10-07 08:00 | NUR ---
PT ASLEEP BUT AROUSABLE. NO ACUTE DISTRESS NOTED. WILL CONTINUE TO MONITOR.
--- NOTE | 2018-10-07 09:05 | NUR ---
MADE DR. MC AWARE OF HIGH BP 171/101. GAVE HYDRALAZINE ORDERED. WILL CONTINUE TO MONITOR.
[2018-10-07 09:21] LABS: BILIRUBIN TOTAL 2.96 mg/dL (0.20-1.00); CALCIUM 8.3 mg/dL (8.5-10.1); CARBON DIOXIDE 24.7 mmol/L (21-32); MAGNESIUM 1.8 mg/dL (1.8-2.4); PHOSPHOROUS 5.7 mg/dL (2.5-4.9); POTASSIUM SERUM 4.3 mmol/L (3.5-5.1)
[2018-10-07 09:24] LABS: ALBUMIN 2.4 g/dL (3.4-5.0); CREATININE SERUM 6.8 mg/dL (0.6-1.0); TOTAL PROTEIN, SERUM 5.9 g/dL (6.4-8.2)
[2018-10-07 09:49] VITALS: BP 171/101
[2018-10-07 10:05] LABS: IRON 77 ug/dL (50-170)
[2018-10-07 10:06] LABS: TOTAL IRON BINDING CAPACITY 209 ug/dL (250-450)
--- NOTE | 2018-10-07 10:08 | NUR ---
RECHECKED PT BP 149/84 HR 60. WILL CONTINUE TO MONITOR.
[2018-10-07 10:10] VITALS: BP 149/84
[2018-10-07 10:41] LABS: PLATELET COUNT 306 x10^3mcL (130-400)
[2018-10-07 10:46] LABS: RED CELL DISTRIBUTION WIDTH 18.4 % (11.5-14.5)
--- NOTE | 2018-10-07 11:20 | NUR ---
PT STATED HER LIJ CATH ACCIDENTLY CAME OUT WHILE SHE WAS SLEEPING. TEMP 98.2 HR 61 RR18 BP 175/103. PT DENIES ANY DIZZINESS AT THIS TIME. DR. MC AWARE
--- NOTE | 2018-10-07 11:20 | NUR ---
NOTIFIED BY PRIMARY RN THAT PT'S LIJ "CAME OUT ON ACCIDENT" BY PT. PRESSURE APPLIED AT THIS TIME. DRESSING CURRENTLY IN PLACE. PT DENIES DIZZINESS/DISCOMFORT. DR MC NOTIFIED AND MADE AWARE. AWAITING NEW ORDERS AT THIS TIME.
[2018-10-07 11:22] VITALS: BP 175/103
--- NOTE | 2018-10-07 11:45 | NUR ---
PT C/O OF BACK PAIN 10/24. GAVE NORCO ORDERED. WILL CONTINUE TO MONITOR
[2018-10-07 11:49] LABS: BAND NEUTROPHIL 10 % (0-10); BASOPHIL 0 % (0-2); MONOCYTE 11 % (0-7); SEGMENTED NEUTROPHILS 62 % (37-75)
[2018-10-07 11:51] LABS: rbc morphology (normal/abnorm) ABNORMAL (NORMAL); schistocyte (helmet cell) 1+
--- NOTE | 2018-10-07 12:20 | NUR ---
PT ASLEEP BUT AROUSABLE. WILL CONTINUE TO MONITOR.
[2018-10-07 13:15] VITALS: BP 160/85
--- NOTE | 2018-10-07 13:45 | NUR ---
PT SPOKE WITH DR. MC OVER THE PHONE. PER DR. MC OK FOR PT TO LEAVE AMA. PT AGREED TO SIGN AMA FORM.
--- NOTE | 2018-10-07 14:01 | NUR ---
NOTIFIED BY PRIMARY NURSE THAT PT REQUESTING TO LEAVE AMA. PT HAS ALREADY SPOKEN TO DR MC REGARDING RISKS OF LEAVING AMA. PT VERBALIZED UNDERSTANDING OF RISKS AND CONTINUES TO WANT TO LEAVE AMA. PT STATES "I NEED TO TAKE CARE OF MY DOG AND THERE IS NO ONE ELSE WHO CAN". TELE MONITOR REMOVED AT THIS TIME. TELE MONITOR NOTIFIED AND MADE AWARE.
== END 2018-10-07 14:12 | disposition left against medical advice (07) | DRG 720 ==
LOC: MU 21:10 → DU 23:09
PROVIDERS: Internal Medicine Nephrology; ADMIT General Practice
PROC: 5A1D70Z Performance of Urinary Filtration, Intermittent, Less than 6 Hours Per Day (ICD-10-PCS; principal; 2018-10-06)
DX: A41.52 Sepsis due to Pseudomonas (principal); D65 Disseminated intravascular coagulation [defibrination syndrome]; N17.0 Acute kidney failure with tubular necrosis; E43 Unspecified severe protein-calorie malnutrition; R65.20 Severe sepsis without septic shock; E83.42 Hypomagnesemia; E87.0 Hyperosmolality and hypernatremia; E83.39 Other disorders of phosphorus metabolism; E78.1 Pure hyperglyceridemia; E16.2 Hypoglycemia, unspecified; D64.9 Anemia, unspecified; Z53.21 Procedure and treatment not carried out due to patient leaving prior to being seen by health care provider; B17.9 Acute viral hepatitis, unspecified; E83.51 Hypocalcemia; N71.9 Inflammatory disease of uterus, unspecified; F17.210 Nicotine dependence, cigarettes, uncomplicated; Z91.14 Patient's other noncompliance with medication regimen; Z99.2 Dependence on renal dialysis; Z68.29 Body mass index [BMI] 29.0-29.9, adult
CPT/HCPCS: 83880; G0378; J0360; J0885-EC; J1644; J2543; J7040; J7050; Q0092

== ENCOUNTER 2018-10-08 09:52 | Inpatient (IN) | payer OTHER ==
[~2018-10-08] VITALS: Ht 167.6 cm; Wt 74.4 kg
--- NOTE | 2018-10-08 10:02 | NUR ---
NO ANSWER FROM LOBBY TO TRIAGE.
--- NOTE | 2018-10-08 10:07 | NUR ---
NO ANSWER FROM LOBBY TO TRIAGE. PT IN RESTROOM, INFORMED TO COME TO TRIAGE UPON FINISHING IN RESTROOM, PT VERBALIZED UNDERSTANDING.
[2018-10-08 10:09] VITALS: Ht 167.6 cm; Wt 74.4 kg
--- NOTE | 2018-10-08 10:13 | NUR ---
PT RETURNED TO LOBBY, NAD NOTED.
--- NOTE | 2018-10-08 10:16 | NUR ---
PLACED IN H1 FOR EVAL.
--- NOTE | 2018-10-08 10:25 | NUR ---
PT CAME TO ED TODAY TO HAVE SHUNT PLACED. PER PT SHE WAS RECENTY ADMITTED HER AND THEN TRANSFERED TO LLU TO BE ASSESSED FOR LIVER TRANSPLANT.PER PT SHE WAS TRANSFERED BACK TO [facility] TO SHUNT PLACEMENT DUE TO BEING IN RENAL FAILURE BUT LEFT AMA DUE TO HAVING A DOG AT HOME THAT SHE NEEDED TO TEND TO. PT RETURNED TODAY FOR SHUNY PLACEMENT. DENIES ALL PAIN. AWAITING MSE
--- NOTE | 2018-10-08 10:28 | NUR ---
AT BEDSIDE PERFORMING MSE
--- NOTE | 2018-10-08 10:46 | NUR ---
RECEIVED PATIENT FROM , PATIENT C/O ABD PAIN, STATES SHE LEFT AMA YESTERDAY AFTER STAYING HERE IN THE HOSP FOR 2 DAYS. STATES "I'M SUPPOSED TO HAVE THE DIALYSIS CATHETER PUT IN OVER THE WEEKEND BUT THEY CAN'T DO IT, BUT MY DOCTOR SAID I NEED IT SINCE I WILL BE IN DIALYSIS FOR THE REST OF MY LIFE." PATIENT IS AA0 X 4 (NAME, DATE, CONDITION AND LOCATION). EYES - PINK. MUCUS - PINK. LUNGS- CTA. BS PRESENT X 4 QUADRANTS. PATIENT STATES SHE AT 22 WEEKS AND WAS ADMITTED TO THE HOSP 5 DAYS AFTER THE PROCEDURE TO SEPTIC SHOCK. WILL CONTINUE TO MONITOR//JUL RN
--- NOTE | 2018-10-08 13:00 | NUR ---
DR DEL RIO AT BEDSIDE FOR EVAL, APPRISED OF PATIENT'S CONDITION. STATES HE'S WAITING FOR LABS AT THIS TIME AND WILL GO FROM THERE.//APR RN
[2018-10-08 13:04] LABS: CHOLESTEROL/HDL RATIO 3.9; PHOSPHOROUS 6.7 mg/dL (2.5-4.9)
--- NOTE | 2018-10-08 13:07 | NUR ---
AFTER MULTIPLE ATTEMPTS TO PUT IN IV HEPLOCK ON PATIENT USING ACUVIEN, NO HEPLOCK HAS BEEN ESTABLISHED. GARMENT WORKER MADE AWARE, DR LAMBERT MADE AWARE, STATES ADMITTING MD CAN ORDER IV UNDER U/S.//APR RN
[2018-10-08 13:12] LABS: FREE T4 1.34 ng/dL (0.76-1.46); FREE THYROXINE INDEX 2.7 ug/dL (1.4-4.5); T4(THYROXINE) 7.4 ug/dL (4.7-13.3)
--- NOTE | 2018-10-08 13:21 | NUR ---
REPORT GIVEN TO CAITLYN NOLASCO FOR ROOM 228A.//APR RN
[2018-10-08 13:23] LABS: T3 TOTAL 1.55 ng/mL
--- NOTE | 2018-10-08 13:45 | NUR ---
RECEIVED PATIENT FROM ED VIA GURNEY. PATIENT AMBULATED TO BED WITHOUT ASSISTANCE. A/O X4 ON RA. NO IV PRESENT. DENIES PAIN AT THIS TIME. TELE MONITOR #19 PLACED, SHOWING NSR PER CEO NA. CALL LIGHT WITHIN REACH
[2018-10-08 13:54] VITALS: BP 151/94
--- NOTE | 2018-10-08 15:09 | NUR ---
PATIENT LAYING SUPINE WITH EYES CLOSED, BREATHING REGULAR AND UNLABORED, APPARENTLY ASLEEP. RESOURCE RN WILL ATTEMPT TO GAIN IV ACCESS. STILL NO IV AT THIS TIME. CALL LIGHT WIHTIN PATIENT REACH. WILL CONTINUE TO MONITOR
--- NOTE | 2018-10-08 17:25 | NUR ---
SPOKE WITH DR KNOX, WE ARE NOT ABLE TO OBTAIN IV ACCESS AFTER MULTIPLE NURSES IN ER AND 2S. DR KNOX ORDERED US GUIDED IV ACCESS. UNABLE TO GIVE LASIX IV PER MAR DUE TO NO IV ACCESS. AT THIS TIME PATIENT IS PALE AND SLEE[PING. ROUSABLE TO VOICE AND THEN A/OX4, BUT VERY SOMNOLENT. CALL LIGHT IS WITHIN REACH
--- NOTE | 2018-10-08 18:03 | NUR ---
DR. KNOX WAS INFORM OSMANY FRANCISCO FROM ER ATTEMPT EJ IV UNSUCCESSFUL, PER OSMANY FRANCISCO PATIENT NEED PICC LINE. SEVERAL NURSE ALREADY ATTEMPTED. NO IV ACCESS.
--- NOTE | 2018-10-08 18:15 | NUR ---
CALL PICC RNs PLUS LEFT MESSAGE REGARD PICC LINE PLACEMENT WAITING FOR CALL BACK.
--- NOTE | 2018-10-08 18:45 | NUR ---
PER MIGUELANGEL FOR PICC JAMAAL RNs VAHE WILL CONTACT NURSE FOR TIME. WILL ENDORSE ON-COMING NURSE.
--- NOTE | 2018-10-08 18:59 | NUR ---
DR. CHAND AT BEDSIDE INFORM PATIENT OF PICC LINE INSERTION AND ANSWER ALL QUESTIONS AND EXPLAINED THE RISKS. PATIENT AGREE WITH PLAN. CONSENT SIGNED BY PATIENT. NO FURTHER QUESTIONS. CALL LIGHT WITHIN REACH.
--- NOTE | 2018-10-08 19:28 | NUR ---
PATIENT COMPLAINING OF PAIN TO ABD. ADMINISTERED NORCO PER JUN. INFORMED PATIENT TO USE CALL LIGHT TO CALL MANUFACTURING LAB TECHNICIAN NURSE FOR ANYTHING ELSE THEY NEED. CALL LIHT WITHING REACH
[2018-10-08 19:37] LABS: BASOPHIL % 0.5 % (0-2); PLATELET COUNT 388 x10^3mcL (130-400)
[2018-10-08 19:47] LABS: RED CELL DISTRIBUTION WIDTH 21.8 % (11.5-14.5)
[2018-10-08 19:50] LABS: rbc morphology (normal/abnorm) ABNORMAL (NORMAL); schistocyte (helmet cell) 1+; tear drop cell (dacryocyte) 1+
--- NOTE | 2018-10-08 20:00 | NUR ---
PT IS CALM AND COOPERATIVE WITH NURSING CARE. PT IS AWAKE AND ORIENTED X4. PT DENIES ORTA OR DIZZINESS AT THIS TIME. PT REMAINS ON TELE#19 SHOWING NSR ON THE MONITOR. PT DENIES CP OR PRESSURE AT THIS TIME. PT HAS PALPABLE PULSES BILAT ALL EXTREMITIES. EDEMA NOTED TO BLE +3. PT DENIES SOB. RESPIRATIONS EVEN AND UNLABORED ON ROOM AIR. PT HAS ACTIVE BOWEL SOUNDS. PT DENIES N/V AND ABD PAIN AT THIS TIME. PT REPORTS DIARRHEA. PT VOIDS FREELY ON OWN . PT HAS GEN WEAKNESS. PT HAS ABRASIONS NOTED TO ABD, BUE, AND RIGHT THIGH. NO IV ACCESS AT THIS TIME. PT TO HAVE PICC LINE PLACEMENT DONE, CONSENT SIGNED. PT REMAINS SLEEPING AT THIS TIME BUT AROUSABLE. NO SIGNS OF DISTRESS. WILL CONTINUE TO MONITOR.
[2018-10-08 20:04] LABS: BILIRUBIN TOTAL 2.2 mg/dL (0.20-1.00); CALCIUM 8.7 mg/dL (8.5-10.1); CARBON DIOXIDE 24.5 mmol/L (21-32); POTASSIUM SERUM 3.7 mmol/L (3.5-5.1)
[2018-10-08 20:06] LABS: ALBUMIN 2.1 g/dL (3.4-5.0); CREATININE SERUM 9.1 mg/dL (0.6-1.0); TOTAL PROTEIN, SERUM 5.4 g/dL (6.4-8.2)
--- NOTE | 2018-10-08 20:18 | NUR ---
PT H/H 7.2/ , CR 9.1. DR. ALONZO NOTIFIED. NO NEW ORDERS AT THIS TIME. WILL CONTINUE TO MONITOR.
[2018-10-08 21:29] VITALS: BP 136/91
--- NOTE | 2018-10-08 22:00 | NUR ---
PICC LINE JAMES COTTER STATED HE WOULD ARIVE WITHIN THE NEXT HOUR TO 1 1/2 HOURS. WILL CONTINUE TO MONITOR.
--- NOTE | 2018-10-08 22:24 | NUR ---
PT C/O ANXIETY PRN ATIVAN PO GIVEN ORDERED. WILL CONTINUE TO MONITOR.
--- NOTE | 2018-10-08 23:35 | NUR ---
PICC PLACEMENT COMPLETED BY PICC LINE NURSE VAHE. PICC LINE TO NOEMI DOUBLE LUMEN.
[2018-10-09] VITALS (8 sets, daily range): BP systolic 134–167; BP diastolic 80–105
[2018-10-09 00:10] LABS: microscopic required? YES; urine erythrocyte 3+ (NEGATIVE)
[2018-10-09 00:19] LABS: AMPHETAMINE QUAL UR NONE DETECTED (See below)
--- NOTE | 2018-10-09 01:33 | NUR ---
PT REMAINS IN BED AT THIS TIME. PT ABLE TO REPOSITION SELF. NO SIGNS OF DISTRESS. WILL CONTINUE TO MONITOR.
--- NOTE | 2018-10-09 03:27 | NUR ---
PT REMAINS IN BED AT THIS TIME RESTING. NO SIGNS OF PAIN OR DISCOMFORT. NO SIGNS OF DISTRESS. WILL CONTINUE TO MONITOR.
--- NOTE | 2018-10-09 04:31 | NUR ---
PT C/O 9/10 ABD PAIN. PRN NORCO GIVEN ORDERED. WILL CONTINUE TO MONITOR.
--- NOTE | 2018-10-09 06:49 | NUR ---
PT IS CALM AND COOPERATIVE WITH NURSING CARE. PT IS ABLE TO VOID ON OWN. PICC LINE TO RUE IN PLACE REMAINS PATENT WITH GOOD BLOOD RETURN. PT SLEPT THROUGHOUT THE EVENING. ALL PT NEEDS MET. NO SIGNS OF DISTRESS. WILL ENDORSE TO DAY NURSE.
[2018-10-09 07:25] LABS: BASOPHIL % 0.3 % (0-2)
[2018-10-09 07:39] LABS: BILIRUBIN TOTAL 2.1 mg/dL (0.20-1.00); CALCIUM 8.2 mg/dL (8.5-10.1); CARBON DIOXIDE 25.1 mmol/L (21-32); MAGNESIUM 1.7 mg/dL (1.8-2.4); PHOSPHOROUS 7.7 mg/dL (2.5-4.9); POTASSIUM SERUM 4.1 mmol/L (3.5-5.1)
[2018-10-09 07:41] LABS: CREATININE SERUM 10.2 mg/dL (0.6-1.0)
[2018-10-09 07:45] LABS: PLATELET COUNT 417 x10^3mcL (130-400); RED CELL DISTRIBUTION WIDTH 20.2 % (11.5-14.5)
--- NOTE | 2018-10-09 07:55 | NUR ---
DR. KNOX AWARE HGB 6.9 AND HCT 20.0 NEW ORDER FOR TYPE AND CROSS FOR 2 UNITS PRBC.
--- NOTE | 2018-10-09 08:54 | NUR ---
PATIENT AWAKE/ALERT UP IN BED, NO COMPLAIN. PATIENT WANT TO KNOW IF SHE SCHEDULE FOR SURGERY, UPDATE PATIENT NO SURGERY ON SCHEDULE FOR TODAY, WAIT FOR DR. KNOX TO ROUND. ADMINISTERED ALL PO MEDS AND LASIX IVP VIA PRIETO PICC LINE X 2 LUMENS FLUSH WELL BEFORE AND AFTER, BREAKFAST TRAY ON TABLE PATIENT STATED JUST WANT COFFEE. CALL LIGHT IN REACH
[2018-10-09 09:09] LABS: rbc morphology (normal/abnorm) ABNORMAL (NORMAL)
--- NOTE | 2018-10-09 12:24 | NUR ---
DR. JOSÉ HANEY CAME TO SEE PATIENT, UPDATE DOCTOR NO DIALYSIS ACCESS AND HAVE NOT SEE DR. GAN YET.
--- NOTE | 2018-10-09 12:42 | NUR ---
PATIENT SAT UP IN BED EATING HER LUNCH, INFORM PATIENT THE BLOOD IS READY, PATIENT AGREE AND CONSENT SIGNED. NO FURTHER QUESTIONS. ATIVAN AND DUE MEDS ADMINISTERED. NEEDS MET. CONT TO MONITOR.
--- NOTE | 2018-10-09 13:09 | NUR ---
PATIENT SITTING IN BED NO COMPLAIN, 1 UNIT PRBC STARTED WITH 2 RN WITNESS, BY HERMILA BRADY. INITIAL VITALS: 165/105, HR 74, 18. T 98.4 PRIETO PICC LINE FLUSH WELL. CONT TO MONITOR Q15 MIN.
--- NOTE | 2018-10-09 13:18 | NUR ---
PATIENT VOMITING AFTER FINISH HER LUNCH, 200ML. ASSISTING PATIENT WITH ORAL CARE. WILL MEDICATE FOR NAUSEA.
--- NOTE | 2018-10-09 13:40 | NUR ---
PAUSE BLOOD AND LINE FLUSH W/ 10ML NS GIVE ZOFRAN 4 MG IVP AND FLUSH WELL, CONTINUE BLOOD TRANFUSE. AFTER 15 MIN NO REACTION NOTED. VITALS REMAIN UNCHANGED FROM INITIAL. CONT TO MONITOR.
--- NOTE | 2018-10-09 14:40 | NUR ---
DR. KNOX WAS MADE AWARE PATIENT BP ELEVATED DURING BLOOD TRANSFUSE, PER DR. GAVE PATIENT LASIX AFTER BLOOD COMPLETED.
--- NOTE | 2018-10-09 16:10 | NUR ---
PATIENT SLEEPING AROUSABLE, BLOOD FINISH, VITALS STABLE, LASIX 40MG IVP AND BENADRYL 25MG PO GIVEN POST BLOOD TRANSFUSE ORDERED. CONT TO MONITOR.
--- NOTE | 2018-10-09 16:39 | NUR ---
#2 UNIT PRBC STARTED WITNESS BY THA RN, INITIAL VITALS 134/80, HR 78, RR 18, T 97.6 CONT TO MONITOR 15 MIN. PATIENT SLEEPING AT THIS TIME.
--- NOTE | 2018-10-09 17:46 | NUR ---
PATIENT SLEEPING AROUSABLE, NOT EATING DINNER YET. STATED WILL EAT LATER. BLOOD STILL INFUSING WELL, NO REACTION NOTED. PICC LINE X2 LUMEN INTACT. CONT TO MONITOR.
--- NOTE | 2018-10-09 18:53 | NUR ---
PATIENT SLEEPING AT THIS TIME, BLOOD INFUSING HALF BAG, NO REACTION NOTED. CONT TO MONITOR. CALL LIGHT WITHIN REACH.
--- NOTE | 2018-10-09 19:12 | NUR ---
RECEIVED PT FROM PREVIOUS SHIFT. DROWSY BUT AROUSABLE. TELE #19 SHOWING NSR. NO INDICATIONS OF PAIN NOTED. BREATHING E/U ON RA. DENIES ABD PAIN, DENIES N/V. PT ON SECOND UNIT OF BLOOD TRANSFUSION, PT TOLERATING WELL, NO ADVERSE EFFECTS REPORTED. PICC LINE CDI, NO ERYTHEMA OR EDEMA AT SITE, BLOOD TRANSFUSING WELL. NO S/S ACUTE DISTRESS. CALL LIGHT WITHIN REACH. SAFETY MEASURES IN PLACE. WILL CONTINUE TO MONITOR.
--- NOTE | 2018-10-09 19:33 | NUR ---
PT C/O ANXIETY, WILL MEDICATE PER EMAR. PT ALSO REQUESTING TO BE "PUT BACK ON NORCO", PT AWARE OF REASONS WHY PT WAS INITIALLY TAKEN OFF NORCO BUT STATES SHE NEEDS IT. WILL NOTIFY RESIDENT.
--- NOTE | 2018-10-09 19:52 | NUR ---
BLOOD TRANSFUSION COMPLETE. PT TOLERATED WELL. VITALS ARE FOLLOWS: 99.2F TEMP, 80 HR, 167/101 BP, 18 RR, 100% OXYGEN SATURATION ON RA. PT DENIES ADVERSE EFFECTS. WILL CONTINUE TO MONITOR.
--- NOTE | 2018-10-09 20:45 | NUR ---
PT C/O 01/24 GENERALIZED BODY PAIN, REQUESTING NORCO OR TRAMADOL PO. WILL NOTIFY DR. HAMMOND.
[2018-10-09 21:26] LABS: BASOPHIL % 1.1 % (0-2); PLATELET COUNT 467 x10^3mcL (130-400); RED CELL DISTRIBUTION WIDTH 19.4 % (11.5-14.5)
--- NOTE | 2018-10-09 22:57 | NUR ---
PT C/O HEADACHE, OFFERED TYLENOL, PT STATES SHE CANNOT TAKE IT "BECAUSE OF MY LIVER". PT REQUESTING MOTRIN, WILL NOTIFY DR. HAMMOND.
--- NOTE | 2018-10-10 01:36 | NUR ---
PT RESTING IN BED. NO S/S ACUTE DISTRESS. NO SIGNS OF PAIN APPARENT. CALL LIGHT WITHIN REACH. SAFETY MEASURES IN PLACE. WILL CONTINUE TO MONITOR.
--- NOTE | 2018-10-10 04:09 | NUR ---
PT C/O ANXIOUSNESS, MEDICATED PER EMAR.
[2018-10-10 06:13] VITALS: BP 161/104
--- NOTE | 2018-10-10 06:21 | NUR ---
PT HAD RESTFUL NIGHT. ARI WIPES USED ON PICC LINE TO RUE. NO S/S ACUTE DISTRESS. BREATHING E/U. DENIES PAIN. NO CHANGES OVERNIGHT. ALL NEEDS MET AND ATTENDED TO. CALL LIGHT WITHIN REACH. SAFETY MEASURES IN PLACE. WILL ENDORSE CARE TO ONCOMING SHIFT.
[2018-10-10 06:36] LABS: BASOPHIL % 0.5 % (0-2)
[2018-10-10 07:02] LABS: BILIRUBIN TOTAL 1.9 mg/dL (0.20-1.00); CALCIUM 8.2 mg/dL (8.5-10.1); CARBON DIOXIDE 25.1 mmol/L (21-32); MAGNESIUM 1.8 mg/dL (1.8-2.4); PHOSPHOROUS 8.3 mg/dL (2.5-4.9); POTASSIUM SERUM 4.3 mmol/L (3.5-5.1)
[2018-10-10 07:04] LABS: ALBUMIN 2.1 g/dL (3.4-5.0); CREATININE SERUM 10.9 mg/dL (0.6-1.0); TOTAL PROTEIN, SERUM 5.3 g/dL (6.4-8.2)
--- NOTE | 2018-10-10 07:22 | NUR ---
BEDSIDE REPORT GIVEN TO CAITLYN GRIFFIN.
[2018-10-10 07:26] LABS: PLATELET COUNT 473 x10^3mcL (130-400); RED CELL DISTRIBUTION WIDTH 18.9 % (11.5-14.5)
[2018-10-10 09:23] VITALS: BP 156/97
--- NOTE | 2018-10-10 11:04 | NUR ---
DID TB TEST TO THE LEFT FOREARM AND GAVE ATIVAN FOR PATIENT ANXIETY. THE SKIN PATIEHT IS COVERED IN WOUNDS THAT SHE STATES ARE DUE TO HER ANEMIA. SHE DENIES DRUG USE COTINUED ON IV AN. NO COMPLAITNS OF PAIN AT THIS TIME AND TOELRATED OOB AND DIET. SHE HAS BEEN WITH HISTORY OF SEPSIS, IV DRUG USE. ANEMIA AND ESRD. MARIELLA ARCE A PICC LINE. PATIENT ENCOURAGE TO DEEP BREATH.
[2018-10-10 12:30] VITALS: BP 160/104
--- NOTE | 2018-10-10 13:22 | NUR ---
1. Recommend Nepro QD, d/t poor PO. 2. Recommend continuing Renal diet.
--- NOTE | 2018-10-10 13:22 | NUR ---
Initial Nutrition Assessment: 228T/A DEVYN VERGARA IA HR Dx: Acute renal failure PMHx: IV drug abuse, Medical noncompliance, Sepsis with DIC PSHx: Surgical (September 2018) Labs: BUN 59H, CREAT 10.9H, P 8.3H, AST 14L Meds: Ativan, Lasix, phoslo, zofran Diet: Renal PO Intake: (10/10) Breakfast 20%, (10/09) 75% average Ht: 167.64 cm (66") Wt: 74.4 kg (163#) BMI: 26.5 kg/m2 Bed scale: 74.4 kg IBW: 136# (62 kg) %IBW: 119 UBW: 150-156# Age: 28/F Food Allergies: NKFA Skin: multiple dry scabs BUE Juan: 19 Edema: +3 pitting edema BLE, trace edema BUE GI: Last BM: 10/08 Per H&P, Pt is a 28 year old female with prior history of IV drug abuse, recent sepsis with DIC and liver failure presenting for dialysis. The patient had been initially admitted on 09/27 for severe sepsis, DIC, acute renal failure and acute liver failure. The patient had been transferred to [place] for higher level of care (hepatology) on 10/03, but was then stabilized and transferred back on 10/05. She was to undergo tunnel catheter placement for long-term dialysis, but left against medical advice on 10/07. She is now back and wants to have the tunnel catheter placed. RDN Visit (10/10): Patient said that she had an episode of vomiting yesterday and has fair appetite. Patient said she had pears, juice and bowl of cereal for breakfast this morning. Patient is willing to consume Nepro ONS. Paged Dr. Conklin to discuss recommendations. Waiting for call back. Problem with: N/V/D/C: no Problems with: Chewing/Swallowing: no Current appetite: fair Recent wt change: gained wt d/t fluid retention (exact #, not sure) %wt change: unable to access Vitamin/Supplement use: no Special diet at home: regular Physical activity: sedentary Nutrition education given: Patient has a recent hospitalization at [facility] and renal diet education for acute kidney injury was provided. Patient did not have any diet related questions at this time. Food-drug interactions: Lasix- increase K, Mg intake Education given: Estimated Nutritional Needs Based on ideal body weight 62 kg Energy: 8605-4636 kcal/d (25-30 kcal/kg) Protein: 50-62 g/d (0.8-1.0 g/kg)- Renal, not on dialysis currently, last HD on 10/06 Fluid: per doctor Nutrition Diagnosis 1. Inadequate oral intake related to "fair appetite" and poor PO as evidenced by documented PO of 20%. Intervention 1. Recommend Nepro QD, d/t poor PO. 2. Recommend continuing Renal diet. Monitor/Evaluate Goal: PO intake at least 75% of estimated needs Monitor: PO intake, Labs, GI function F/U in 3-5 days as moderate risk 10/13-10/15
[2018-10-10 17:06] VITALS: BP 160/90
--- NOTE | 2018-10-10 17:10 | NUR ---
GAVE DISCHARGE PAPERWORK AND PRESCRIPTION TO FOLLOW UP LAB AND TO FOLLOW UP WITH [facility] TO REAAD THE TB. GAVE A COPY OF THE TB DOCUMENTATION. PATIENT HAD PICC LINE REMOVED BY DR KNOX AND SHE WANTED TO KEEP THE LINE BUT NO INDICATION SHE NEEDED AND CONCERN SHE HAS NOTED DRUG USE IN THE PAST. PATIENT HAD THE PICC LINE AND TELE REMOVED PRIOR TO DISCHARGE HOME. BLOOD PRESSURE AT 160/90. DISCHARGED TO HOME WITH ALL BELONGINGS.
== END 2018-10-10 17:24 | disposition home or self-care (01) | DRG 469 ==
LOC: ED 09:52 → DU 11:14
PROVIDERS: Internal Medicine; ADMIT General Practice
PROC: 02HV33Z Insertion of Infusion Device into Superior Vena Cava, Percutaneous Approach (ICD-10-PCS; principal; 2018-10-08)
PROC: B548ZZA Ultrasonography of Superior Vena Cava, Guidance (ICD-10-PCS; 2018-10-08)
PROC: 30233N1 Transfusion of Nonautologous Red Blood Cells into Peripheral Vein, Percutaneous Approach (ICD-10-PCS; 2018-10-09)
DX: N17.0 Acute kidney failure with tubular necrosis (principal); D65 Disseminated intravascular coagulation [defibrination syndrome]; E43 Unspecified severe protein-calorie malnutrition; D64.9 Anemia, unspecified; E83.42 Hypomagnesemia; E83.51 Hypocalcemia; E83.39 Other disorders of phosphorus metabolism; R74.0 Nonspecific elevation of levels of transaminase and lactic acid dehydrogenase [LDH]; F17.210 Nicotine dependence, cigarettes, uncomplicated; Z68.26 Body mass index [BMI] 26.0-26.9, adult; Z99.2 Dependence on renal dialysis
CPT/HCPCS: 83880; 84439; 86580; C1751; G0378; J1940; J2405; J7030; J7040; P9016; Q0092; Q0163

== ENCOUNTER 2018-10-13 01:05 | Inpatient (IN) | payer OTHER ==
[~2018-10-13] VITALS: Ht 167.6 cm; Wt 71.7 kg
[2018-10-13 01:11] VITALS: Ht 167.6 cm; Wt 71.7 kg
[2018-10-13 02:10] LABS: BASOPHIL % 3.4 % (0-2); PLATELET COUNT 535 x10^3mcL (130-400); RED CELL DISTRIBUTION WIDTH 19.6 % (11.5-14.5)
[2018-10-13 02:24] LABS: BILIRUBIN TOTAL 2.03 mg/dL (0.20-1.00); CALCIUM 9.3 mg/dL (8.5-10.1); CARBON DIOXIDE 18.6 mmol/L (21-32); POTASSIUM SERUM 4.5 mmol/L (3.5-5.1)
[2018-10-13 02:55] LABS: ALBUMIN 2.7 g/dL (3.4-5.0); CREATININE SERUM 12.4 mg/dL (0.6-1.0); TOTAL PROTEIN, SERUM 6.1 g/dL (6.4-8.2)
[2018-10-13 03:49] LABS: AMPHETAMINE QUAL UR NONE DETECTED (See below)
[2018-10-13] MEDS ORDERED: AMBIEN5 MG PO (04:20)
[2018-10-13 05:08] LABS: CHOLESTEROL/HDL RATIO 3.9; MAGNESIUM 1.9 mg/dL (1.8-2.4)
[2018-10-13 05:11] LABS: PHOSPHOROUS 9.6 mg/dL (2.5-4.9)
[2018-10-13 05:26] LABS: microscopic required? YES
[2018-10-13 05:27] LABS: urine erythrocyte 3+ (NEGATIVE)
[2018-10-13 05:40] VITALS: BP 156/111
[2018-10-13 08:49] VITALS: BP 139/108
[2018-10-13 11:09] VITALS: BP 147/119
[2018-10-13 17:11] VITALS: BP 146/99
[2018-10-13 19:40] VITALS: BP 134/103
[2018-10-13 22:55] VITALS: BP 130/96
[2018-10-14 06:42] LABS: BASOPHIL % 1.2 % (0-2); PLATELET COUNT 391 x10^3mcL (130-400)
[2018-10-14 06:52] VITALS: BP 141/103
[2018-10-14 06:59] LABS: CALCIUM 9.1 mg/dL (8.5-10.1); CARBON DIOXIDE 26.3 mmol/L (21-32); CREATININE SERUM 7.6 mg/dL (0.6-1.0); MAGNESIUM 1.7 mg/dL (1.8-2.4); POTASSIUM SERUM 3.9 mmol/L (3.5-5.1)
[2018-10-14 09:05] VITALS: BP 155/116
[2018-10-14 12:10] VITALS: BP 144/101
[2018-10-14 17:25] VITALS: BP 135/97
[2018-10-14 19:54] VITALS: BP 135/97
[2018-10-15 06:00] LABS: BASOPHIL % 1.1 % (0-2); PLATELET COUNT 362 x10^3mcL (130-400)
[2018-10-15 06:07] VITALS: BP 141/57
[2018-10-15 06:20] LABS: CALCIUM 8.6 mg/dL (8.5-10.1); CARBON DIOXIDE 30.4 mmol/L (21-32); MAGNESIUM 1.6 mg/dL (1.8-2.4); PHOSPHOROUS 4.9 mg/dL (2.5-4.9); POTASSIUM SERUM 3.1 mmol/L (3.5-5.1)
[2018-10-15 06:24] LABS: CREATININE SERUM 5.4 mg/dL (0.6-1.0)
[2018-10-15 06:39] LABS: RED CELL DISTRIBUTION WIDTH 19.7 % (11.5-14.5)
[2018-10-15 09:00] VITALS: BP 138/95
== END 2018-10-15 10:35 | disposition left against medical advice (07) | DRG 469 ==
LOC: ED 01:05 → DU 04:16 → MU 06:30 → DU 06:32
PROVIDERS: Emergency Medicine; Surgery; ADMIT Internal Medicine
PROC: 0JH63XZ Insertion of Tunneled Vascular Access Device into Chest Subcutaneous Tissue and Fascia, Percutaneous Approach (ICD-10-PCS; 2018-10-13)
PROC: 02HV33Z Insertion of Infusion Device into Superior Vena Cava, Percutaneous Approach (ICD-10-PCS; 2018-10-13)
PROC: B548ZZA Ultrasonography of Superior Vena Cava, Guidance (ICD-10-PCS; 2018-10-13)
PROC: 5A09357 Assistance with Respiratory Ventilation, Less than 24 Consecutive Hours, Continuous Positive Airway Pressure (ICD-10-PCS; 2018-10-13)
PROC: 5A1D70Z Performance of Urinary Filtration, Intermittent, Less than 6 Hours Per Day (ICD-10-PCS; principal; 2018-10-13 11:00)
PROC: 5A1D70Z Performance of Urinary Filtration, Intermittent, Less than 6 Hours Per Day (ICD-10-PCS; 2018-10-14)
DX: N17.0 Acute kidney failure with tubular necrosis (principal); I21.A1 Myocardial infarction type 2; J96.01 Acute respiratory failure with hypoxia; N18.6 End stage renal disease; I12.0 Hypertensive chronic kidney disease with stage 5 chronic kidney disease or end stage renal disease; E87.0 Hyperosmolality and hypernatremia; Z53.21 Procedure and treatment not carried out due to patient leaving prior to being seen by health care provider; E83.39 Other disorders of phosphorus metabolism; I16.0 Hypertensive urgency; I13.2 Hypertensive heart and chronic kidney disease with heart failure and with stage 5 chronic kidney disease, or end stage renal disease; I50.41 Acute combined systolic (congestive) and diastolic (congestive) heart failure; D64.9 Anemia, unspecified; F12.10 Cannabis abuse, uncomplicated; F17.210 Nicotine dependence, cigarettes, uncomplicated; Z68.29 Body mass index [BMI] 29.0-29.9, adult; Z91.19 Patient's noncompliance with other medical treatment and regimen
CPT/HCPCS: 36600; 83880; A4301; A4628; G0378; J1644; J1940; J2001; J2250; J2704; J3010; J3490; J7030; J7040; J7620; Q0092